=== PATIENT | male | born 1935 | race Caucasian/White ===

== ENCOUNTER 2016-05-01 04:35 | Inpatient (IN) | payer MEDICARE, BC ==
[~2016-05-01] VITALS: Ht 180.3 cm; Wt 85.0 kg
[2016-05-01] VITALS (10 sets, daily range): BP systolic 161–184; BP diastolic 84–99; PULSE 70–104; RESP 12–24; TEMP 96.9–97.9; O2SAT 90–97
[~2016-05-01 04:35] MED LIST: APIX5TAB PO; BETAM.05%T TOP; DILTCD240 PO; GABA300 PO; LOSA100T PO; METF850 PO; METO50TA PO; MVI PO; PRAV40 PO; TEMA15 PO
--- NOTE | 2016-05-01 05:08 | PD ---
HPI Chief Complaint: Respiratory Symptoms Time Seen by Provider: 04:59 Travel History International Travel<30 days: No Contact w/Intl Traveler<30days: No Traveled to known affect area: No History of Present Illness HPI 81-year-old male with history of A. fib on [facility], [facility], followed by sales order processor Dr. Harris, here for evaluation of shortness of breath, cough, and right-sided chest pain. Symptoms have been going on for last 2 days and have been worsening. Cough is occasionally productive of greenish sputum. No hemoptysis. Shortness of breath is at rest, worse with exertion. He is describing an ache over his right chest that is worse at night. No modifying factors. No orthopnea. No history of DVT or PE. He does have a history of pleural effusion which she reports was drained by cryptologic technician technical Dr. Cohen. 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) High Cholesterol: Yes Chemotherapy: No Chest Pain: Yes Congestive Heart Failure: No COPD: No Cerebrovascular Accident: No Diabetes: Yes (TYPE 2) Diminished Hearing: Yes Endocrine: No Gastrointestinal Disorders: No GERD: No Glaucoma: No Genitourinary: No Headaches: No Hepatitis: No Hiatal Hernia: No Hypertension: Yes Immune Disorder: No Kidney Stones: No Musculoskeletal: No Neurologic: No Psychiatric: No Reproductive: No Respiratory: No Integumentary: No Migraines: No Myocardial Infarction: Yes (2 SC 1992) Radiation Therapy: No Renal Failure: No Seizures: No Sickle Cell Disease: No Sleep Apnea: No Thyroid Disease: No Ulcer: No Past Surgical History Abdominal Surgery: Yes (HAD G TUBE REMOVED 2013) AICD: No Arteriovenous Shunt: No Cardiac Surgery: Yes Ear Surgery: No Endocrine Surgery: No Eye Surgery: Yes (CATARACT SURGERY BILATERAL) Genitourinary Surgery: No Gynecologic Surgery: No Insulin Pump: No Joint Replacement: No Oral Surgery: No Pacemaker: No Thoracic Surgery: No Other Surgery: Yes (TRACH REVERSED 2013) Social History Alcohol Use: Yes (daily to occasionally) Tobacco Use: No Substance Use: No Allergies-Medications (Allergen,Severity, Reaction): Coded Allergies: No Known Allergies (Verified , 05/01/16) Reported Meds & Prescriptions Reported Meds & Active Scripts Active Reported Betamethasone Dipropionate Topical 0.05% Cream 1 Applic TOPICAL DIRECTED Prilosec (Omeprazole) 20 Mg Cap 20 Mg PO DAILY Mobic (Meloxicam) 7.5 Mg Tab 7.5 Mg PO DAILY Pravastatin 40 Mg Tab 40 Mg PO DAILY Temazepam 15 Mg Cap 15 Mg PO HS PRN Gabapentin 300 Mg Cap 300 Mg PO HS Diltiazem CD 24 HR 180 Mg Caper 180 Mg PO BID Losartan (Losartan Potassium) 100 Mg Tab 100 Mg PO DAILY Metformin (Metformin HCl) 850 Mg Tab 850 Mg PO BIDPC With meals Metoprolol Tartrate 50 Mg Tab 50 Mg PO HS Eliquis (Apixaban) 5 Mg Tab 5 Mg PO BID Review of Systems Except as stated in HPI: all other systems reviewed are Neg Physical Exam Narrative GENERAL: Pleasant, well-developed, well-nourished, comfortable, no acute distress. SKIN: Warm and dry. Midline surgical scar that is well-healed over his thoracic and lumbar spine. HEAD: Atraumatic. Normocephalic. EYES: Pupils equal and round. No scleral icterus. No injection or drainage. ENT: Mucous membranes pink and moist. NECK: Trachea midline. No JVD. CARDIOVASCULAR: Regular rate and rhythm. No murmur appreciated. RESPIRATORY: No accessory muscle use. Mild bibasilar rales. No wheezes or rhonchi. Breath sounds equal bilaterally. GASTROINTESTINAL: Abdomen soft, non-tender, nondistended. MUSCULOSKELETAL: No obvious deformities. No clubbing. No cyanosis. Mild bilateral lower extremity edema from foot to knee. NEUROLOGICAL: Awake and alert. No obvious cranial nerve deficits. Motor grossly within normal limits. Normal speech. PSYCHIATRIC: Appropriate mood and affect; insight and judgment normal. Data Data Last Documented VS Vital Signs Date Time Temp Pulse Resp B/P Pulse Ox O2 Delivery O2 Flow Rate FiO2 05/01/16 05:42 100 16 98 Nasal Cannula 2 05/01/16 04:54 97.9 161/84 Orders Complete Blood Count With Diff (05/01/16 05:05) Comprehensive Metabolic Panel (05/01/16 05:05) B-Type Natriuretic Peptide (05/01/16 05:05) Act Partial Throm Time (Ptt) (05/01/16 05:05) Prothrombin Time / Inr (Pt) (05/01/16 05:05) Ckmb (Isoenzyme) Profile (05/01/16 05:05) Troponin I (05/01/16 05:05) Influenzae A/B Antigen (05/01/16 05:05) Iv Access Insert/Monitor (05/01/16 05:05) Electrocardiogram (05/01/16 05:05) Ecg Monitoring (05/01/16 05:05) Oximetry (05/01/16 05:05) Oxygen Administration (05/01/16 05:05) Chest, Single Ap (05/01/16 05:05) Sodium Chloride 0.9% Flush (Ns Flush) (05/01/16 05:15) Blood Culture (05/01/16 05:05) Lactic Acid (05/01/16 05:05) Urinalysis - C+S If Indicated (05/01/16 05:58) CKMB (05/01/16 05:30) CKMB% (05/01/16 05:30) Ceftriaxone Inj (Rocephin Inj) (05/01/16 06:45) Azithromycin Inj (Zithromax Inj) (05/01/16 06:45) Furosemide Inj (Lasix Inj) (05/01/16 06:45) Admit Order (Ed Use Only) (05/01/16 06:39) Labs Laboratory Tests Test 05/01/16 05/01/16 05:30 06:00 White Blood Count 8.8 TH/MM3 Red Blood Count 4.17 MIL/MM3 Hemoglobin 13.0 GM/DL Hematocrit 38.1 % Mean Corpuscular Volume 91.4 FL Mean Corpuscular Hemoglobin 31.1 PG Mean Corpuscular Hemoglobin 34.1 % Concent Red Cell Distribution Width 14.1 % Platelet Count 301 TH/MM3 Mean Platelet Volume 7.6 FL Neutrophils (%) (Auto) 81.3 % Lymphocytes (%) (Auto) 11.4 % Monocytes (%) (Auto) 6.3 % Eosinophils (%) (Auto) 0.6 % Basophils (%) (Auto) 0.4 % Neutrophils # (Auto) 7.2 TH/MM3 Lymphocytes # (Auto) 1.0 TH/MM3 Monocytes # (Auto) 0.6 TH/MM3 Eosinophils # (Auto) 0.1 TH/MM3 Basophils # (Auto) 0.0 TH/MM3 CBC Comment DIFF FINAL Differential Comment Prothrombin Time 11.6 SEC Prothromb Time International 1.0 RATIO Ratio Activated Partial 28.1 SEC Thromboplast Time Sodium Level 140 MEQ/L Potassium Level 4.1 MEQ/L Chloride Level 103 MEQ/L Carbon Dioxide Level 29.7 MEQ/L Anion Gap 7 MEQ/L Blood Urea Nitrogen 10 MG/DL Creatinine 0.91 MG/DL Estimat Glomerular Filtration 80 ML/MIN Rate Random Glucose 134 MG/DL Lactic Acid Level 1.9 mmol/L Calcium Level 8.7 MG/DL Total Bilirubin 0.7 MG/DL Aspartate Amino Transf 39 U/L (AST/SGOT) Alanine Aminotransferase 25 U/L (ALT/SGPT) Alkaline Phosphatase 70 U/L Total Creatine Kinase 124 U/L Creatine Kinase MB 1.8 NG/ML Troponin I LESS THAN 0.02 NG/ML B-Type Natriuretic Peptide 172 PG/ML Total Protein 7.9 GM/DL Albumin 3.6 GM/DL Urine Color YELLOW Urine Turbidity CLEAR Urine pH 7.0 Urine Specific [place] 1.013 Urine Protein TRACE mg/dL Urine Glucose (UA) NEG mg/dL Urine Ketones NEG mg/dL Urine Occult Blood NEG Urine Nitrite NEG Urine Bilirubin NEG Urine Urobilinogen LESS THAN 2.0 MG/DL Urine Leukocyte Esterase NEG Urine RBC 1 /hpf Urine WBC 1 /hpf Microscopic Urinalysis Comment CULT NOT INDICATED MDM Medical Decision Making Medical Screen Exam Complete: Yes Emergency Medical Condition: Yes Medical Record Reviewed: Yes Interpretation(s) EKG: A. fib, rate 74, left axis deviation, Q waves in inferior leads, no acute ischemic abnormality. Differential Diagnosis Pneumonia, influenza, pneumothorax, pleural effusion, PE, CHF/pulmonary edema, ACS Narrative Course Initial vital signs show heart rate 70, blood pressure 161/84, pulse ox 90% on room air, oral temp of 97.9F. CBC shows WBCs 8.8, hemoglobin 13, hematocrit 38.1, platelets 301, neutrophils 81.3%. CMP is essentially unremarkable. Cardiac enzymes are negative. UA is not suggestive of UTI. Chest x-ray: FINDINGS: Bilateral pleural effusions, left lower lung consolidation and patchy infiltrates in the right lower lung are similar in severity and appearance when compared to a chest x-ray in June of 2014. Mid and upper lungs are clear. The heart is moderately enlarged. The patient and the patient's were made aware of all findings. He reports having a cough that is intermittently productive of greenish sputum. Given this and above chest x-ray findings as well as hypoxia of 90% on room air, I will start him on antibiotics to cover for pneumonia. He will also be given Lasix. He will be admitted for further treatment and evaluation. Diagnosis Primary Impression: Pleural effusion Additional Impressions: Pneumonia Qualified Code: J18.1 - Pneumonia of right lower lobe due to infectious organism Chest pain Qualified Code: R07.9 - Chest pain, unspecified type Hypoxia Admitting Information Admitting Physician Requests: Admit Roger Pacheco MD May 01, 2016 05:08
[2016-05-01] MEDS ORDERED: SODIUM CHLORIDE 0.9% FLUSH 5 ML FLUSH IVF PRN (05:15)
[2016-05-01] MEDS ORDERED: MOBI7.5T PO (05:41)
[2016-05-01] MEDS ORDERED: PRAV40TA2 PO (05:41)
[2016-05-01] MEDS ORDERED: APIX5TAB PO (05:41)
[2016-05-01] MEDS ORDERED: GABA300C5 PO (05:41)
[2016-05-01] MEDS ORDERED: TEMA15CA PO (05:41)
[2016-05-01] MEDS ORDERED: PRIL20CA9 PO (05:41)
[2016-05-01] MEDS ORDERED: METO50TA PO (05:41)
[2016-05-01] MEDS ORDERED: DILT180C56 PO (05:41)
[2016-05-01] MEDS ORDERED: LOSA100T PO (05:41)
[2016-05-01] MEDS ORDERED: METF850T PO (05:41)
[2016-05-01] MEDS ORDERED: BETA0.052 TOPICAL (05:41)
[2016-05-01 05:58] LABS: APTT (PATIENT) 28.1 SEC (24.3-30.1); AUTOMATED NEUTROPHIL # 7.2 TH/MM3 (1.8-7.7); BASOPHIL % 0.4 % (0.0-2.0); EOSINOPHIL # 0.1 TH/MM3 (0-0.4); EOSINOPHIL % 0.6 % (0.0-4.0); HEMATOCRIT 38.1 % (39.0-51.0); HEMO FLAGS DIFF FINAL; LYMPH % 11.4 % (9.0-44.0); MEAN CELL VOLUME 91.4 FL (80.0-100.0); MEAN CORPUSCULAR HEMOGLOBIN 31.1 PG (27.0-34.0); MEAN CORPUSCULAR HGB CONC 34.1 % (32.0-36.0); MONO % 6.3 % (0.0-8.0); NEUT % 81.3 % (16.0-70.0); PLATELET COUNT 301 TH/MM3 (150-450); PROTHROMBIN TIME - PATIENT 11.6 SEC (9.8-11.6); RED BLOOD COUNT 4.17 MIL/MM3 (4.50-5.90); RED CELL DISTRIBUTION WIDTH 14.1 % (11.6-17.2); WHITE BLOOD COUNT 8.8 TH/MM3 (4.0-11.0)
[2016-05-01 06:00] LABS: ALT (GPT) 25 U/L (12-78); ANION GAP 7 MEQ/L (5-15); AST (GOT) 39 U/L (15-37); BICARBONATE 29.7 MEQ/L (21.0-32.0); BLOOD UREA NITROGEN 10 MG/DL (7-18); CHLORIDE 103 MEQ/L (98-107); GLOMERULAR FILTRATION RATE 80 ML/MIN (>89); POTASSIUM 4.1 MEQ/L (3.5-5.1); SODIUM (NA) 140 MEQ/L (136-145)
[2016-05-01 06:03] LABS: ALKALINE PHOSPHATASE 70 U/L (45-117); CREATINE KINASE 124 U/L (39-308); TOTAL BILIRUBIN ADULT 0.7 MG/DL (0.2-1.0)
[2016-05-01 06:15] LABS: CKMB 1.8 NG/ML (0.5-3.6)
[2016-05-01 06:16] LABS: BLOOD, URINE NEG (NEG); GLUCOSE,URINE NEG (NEG); KETONE, URINE NEG (NEG); NITRITE,URINE NEG (NEG); URINE COLOR YELLOW (YELLW/STRAW)
[2016-05-01 06:21] LABS: COMMENT (UR) CULT NOT INDICATED; CULTURE IF INDICATED CULT NOT INDICATED
--- NOTE | 2016-05-01 06:27 | RADRPT ---
EXAM DATE/TIME: 05/01/2016 05:08 [facility] COMPARISON: CHEST PA & LAT, May 28, 2013, 16:38. CHEST SINGLE AP, June 08, 2014, 23:55. INDICATIONS : Shortness of breath. MEDICAL HISTORY : Myocardial infarction. SURGICAL HISTORY : Right thoracentesis, thoracic and lumbar spine fusion. ENCOUNTER: Initial ACUITY: 1 day PAIN SCORE: 0/10 LOCATION: Bilateral chest FINDINGS: Bilateral pleural effusions, left lower lung consolidation and patchy infiltrates in the right lower lung are similar in severity and appearance when compared to a chest x-ray in June of 2014. Mid and upper lungs are clear. The heart is moderately enlarged. CONCLUSION: Lower lobe consolidation and pleural effusions. Willie Hoskins MD on May 01, 2016 at 6:24 Board Certified Radiologist. This report was verified electronically.
[2016-05-01] MEDS ORDERED: GLUCAGON 1 MG/ML VIAL OTHER PRN (06:45)
[2016-05-01] MEDS ORDERED: RESP: ALBUTEROL 2.5 MG/IPRATROPIUM 0.5 MG NEB (PRN) NEB (06:45)
[2016-05-01] MEDS ORDERED: SODIUM CHLORIDE 0.9% FLUSH 5 ML FLUSH FLUSH PRN (06:45)
[2016-05-01] MEDS ORDERED: ACETAMINOPHEN/HYDROcodone 325 MG/10 MG TAB PO PRN (06:45)
[2016-05-01] MEDS ORDERED: cefTRIAXone INJ 1,000 MG in SODIUM CHLORIDE 0.9% INJ 100 ML IV ONE (06:45)
[2016-05-01] MEDS ORDERED: ACETAMINOPHEN/HYDROcodone 325 MG/5 MG TAB PO PRN (06:45)
[2016-05-01] MEDS ORDERED: ONDANSETRON HCL 4 MG/2 ML VIAL IVP PRN (06:45)
[2016-05-01] MEDS ORDERED: ACETAMINOPHEN 325 MG TAB PO PRN (06:45)
[2016-05-01] MEDS ORDERED: AZITHROMYCIN INJ 500 MG in SODIUM CHLOR 0.9% 250 ML INJ 250 ML IV ONE (06:45)
[2016-05-01] MEDS ORDERED: DEXTROSE 50% IN WATER 50 ML VIAL(D50) IV PUSH PRN (06:45)
[2016-05-01] MEDS ORDERED: FUROSEMIDE 40 MG/4 ML VIAL IV PUSH ONE (06:45)
[2016-05-01] MEDS ORDERED: BISACODYL 10 MG SUPP PR PRN (06:45)
[2016-05-01] MEDS ORDERED: TEMAZEPAM 15 MG CAP PO PRN (06:45)
[2016-05-01] MEDS: INSULIN ASPART SUPPLEMENTAL SCALE SQ SCH ×4 (07:00→21:00)
[2016-05-01] MEDS: APIXABAN 5 MG TABLET PO SCH ×2 (09:29→22:25)
[2016-05-01] MEDS: PRAVASTATIN SOD 40 MG TAB PO SCH (09:29)
[2016-05-01] MEDS: guaiFENesin E.R. 600 MG TAB PO SCH ×2 (09:29→22:25)
[2016-05-01] MEDS: PANTOPRAZOLE SOD 20 MG DELAYED RELEASE TAB PO SCH (09:29)
[2016-05-01] MEDS: DILTIAZEM-CD 180 MG CAP ER PO SCH ×2 (09:29→22:20)
[2016-05-01] MEDS: LOSARTAN 50 MG TAB PO SCH (09:30)
[2016-05-01] MEDS: SODIUM CHLORIDE 0.9% FLUSH 5 ML FLUSH FLUSH SCH ×2 (09:30→22:25)
[2016-05-01] MEDS ORDERED: LORazepam 2 MG/ML VIAL IV PUSH PRN ×4 (11:45)
[2016-05-01] MEDS ORDERED: FLUMAZENIL 0.5 MG/5 ML VIAL IV PUSH PRN (11:45)
[2016-05-01] MEDS ORDERED: LORazepam 1 MG TAB PO PRN (11:45)
[2016-05-01] MEDS ORDERED: LORazepam 2 MG TAB PO PRN (11:45)
--- NOTE | 2016-05-01 12:07 | HHI.HP ---
[facility] Primary [facility] Physician Abhay Woods MD Admission Diagnosis bilateral pleural effusions, pneumonia, hypoxia, chest pain Diagnoses: Chief Complaint: Short of breath with cough Travel History International Travel<30 Days: No Contact w/Intl Traveler <30 Da: No Traveled to Known Affected Are: No History of Present Illness 81 years old male with history of A. fib, hypertension, hyper lipidemia, diabetes mellitus, coronary artery disease,H/O pleural effusion status post thoracentesis about a year ago by pocket builder, presented with a complaint of 3 -4 days worsening short of breath with cough and greenish phlegm, no fever or chills, no hemoptysis, no abdominal pain diarrhea or constipation, orthopnea or PND. Patient denied recent flulike syndrome. He thought if the pleural effusion coming back. Chest x-ray showed bilateral infiltrate with pleural effusion, he does have edema in his legs but he is not on diuretic, he think he had a echocardiogram about a year or more ago at Dr. Harris office. He denied noncompliance with diet or consumption of salty food In ED patient was found to have elevated BNP of 173, elevated troponin, but no significant chest pain. Review of Systems Other All 10 systems reviewed and was positive for what is mentioned in history of present illness otherwise negative Past Family Social History Past Medical History A. fib Coronary artery disease [place] 2 in 1992 status post heart cath 2 Hyperlipidemia Diabetes mellitus type 2 Hypertension Past Surgical History G-tube removed 2013 Cataract surgery bilaterally Trach reversed 2013 Allergies: Coded Allergies: No Known Allergies (Verified , 05/01/16) Family History No significant medical disease runs in the family as per the patient Social History Drinks daily alcohol 1 drink of RuM an diet Coke daily No tobacco or illicit drug abuse Physical Exam Vital Signs Vital Signs Date Time Temp Pulse Resp B/P Pulse Ox O2 Delivery O2 Flow Rate FiO2 05/01/16 09:00 104 24 169/99 97 Nasal Cannula 2 05/01/16 07:00 90 22 166/87 95 Nasal Cannula 2 05/01/16 05:42 100 16 98 Nasal Cannula 2 05/01/16 05:42 96 Nasal Cannula 2 05/01/16 05:30 101 16 92 Room Air 05/01/16 04:54 97.9 70 20 161/84 90 Physical Exam - - - GENERAL: This is a well-nourished, well-developed patient, in no apparent distress. SKIN: No rashes, warm and dry HEAD: Atraumatic. Normocephalic. EYES: Pupils equal round and reactive. Extraocular motions intact. No scleral icterus. ENT: Nose without bleeding, or drainage, Airway patent. NECK: Trachea midline. Supple CARDIOVASCULAR: Regular rate and rhythm without murmurs, gallops, or rubs. RESPIRATORY: Diminished breath sounds bibasilar with some crackles GASTROINTESTINAL: Abdomen soft, non-tender, nondistended. Positive bowel sounds MUSCULOSKELETAL: Extremities without clubbing, cyanosis, +1 edema. Pedal pulses appreciated NEUROLOGICAL: Awake and alert. Moves all extremity. Normal speech.no focal neurological deficit Laboratory Laboratory Tests Test 05/01/16 05/01/16 05:30 06:00 White Blood Count 8.8 Red Blood Count 4.17 Hemoglobin 13.0 Hematocrit 38.1 Mean Corpuscular Volume 91.4 Mean Corpuscular Hemoglobin 31.1 Mean Corpuscular Hemoglobin 34.1 Concent Red Cell Distribution Width 14.1 Platelet Count 301 Mean Platelet Volume 7.6 Neutrophils (%) (Auto) 81.3 Lymphocytes (%) (Auto) 11.4 Monocytes (%) (Auto) 6.3 Eosinophils (%) (Auto) 0.6 Basophils (%) (Auto) 0.4 Neutrophils # (Auto) 7.2 Lymphocytes # (Auto) 1.0 Monocytes # (Auto) 0.6 Eosinophils # (Auto) 0.1 Basophils # (Auto) 0.0 CBC Comment DIFF FINAL Differential Comment Prothrombin Time 11.6 Prothromb Time International 1.0 Ratio Activated Partial 28.1 Thromboplast Time Sodium Level 140 Potassium Level 4.1 Chloride Level 103 Carbon Dioxide Level 29.7 Anion Gap 7 Blood Urea Nitrogen 10 Creatinine 0.91 Estimat Glomerular Filtration 80 Rate Random Glucose 134 Lactic Acid Level 1.9 Calcium Level 8.7 Total Bilirubin 0.7 Aspartate Amino Transf 39 (AST/SGOT) Alanine Aminotransferase 25 (ALT/SGPT) Alkaline Phosphatase 70 Total Creatine Kinase 124 Creatine Kinase MB 1.8 Troponin I LESS THAN 0.02 B-Type Natriuretic Peptide 172 Total Protein 7.9 Albumin 3.6 Urine Color YELLOW Urine Turbidity CLEAR Urine pH 7.0 Urine Specific [place] 1.013 Urine Protein TRACE Urine Glucose (UA) NEG Urine Ketones NEG Urine Occult Blood NEG Urine Nitrite NEG Urine Bilirubin NEG Urine Urobilinogen LESS THAN 2.0 Urine Leukocyte Esterase NEG Urine RBC 1 Urine WBC 1 Microscopic Urinalysis Comment CULT NOT INDICATED Date/Time Procedure Status Source Growth 05/01/16 05:55 Influenza Types A,B Antigen (TIM) - Final Complete Nasal Washing NEGATIVE FOR FLU A AND B ANTIGEN.... 05/01/16 05:30 Aerobic Blood Culture Received Blood Peripheral Pending 05/01/16 05:30 Anaerobic Blood Culture Received Blood Peripheral Pending Result Diagram: 05/01/16 0530 05/01/16 0530 Imaging Last Impressions Chest X-Ray 05/01/16 0505 Signed Impressions: Service Date/Time: Sunday, May 01, 2016 05:08 - CONCLUSION: Lower lobe consolidation and pleural effusions. Willie Hoskins MD Assessment and Plan Assessment and Plan 81 years old male admitted with shortness of breath with coughing and hypoxia Bilateral pneumonia with pleural effusion History of previous pleural effusion and thoracentesis by pocket builder dr.D' portillo unknown (transudative vs exudative ) Atrial fibrillation with rate controlled on diltiazem and beta dayana, elliquis Increase troponin mostly due to pneumonia Alcohol abuse, daily alcohol consumption Hypertension Hyperlipidemia History of coronary artery disease status post [place] 93 DVT prophylaxis on elliquis Plan: Admit to inpatient Oxygen, DuoNeb, Rocephin Zithromax Morphine iv for pain and to improve respiration Check sputum culture, and Legionella pneumococcal urine antigen consult pulmonary for possible need of bronchoscopy to r/o underlying malignancy Check 2-D echo Started on Lasix 40 mg twice a day Strict I&O Monitor BMP and BNP, BMP today 172 Repeat chest x-ray in 1 or 2 days If pleural effusion doesn't improve we may need to go for thoracentesis Accu-Chek and insulin sliding scale CIWA protocol Resume home meds rec including diltiazem, metoprolol, and losartan for hypertension statinsuzanne Discussed Condition With Patient Physician Certification 2 Midnight Certification Type: Admission for Inpatient Services Order for Inpatient Services The services are ordered in accordance with Medicare regulations or non- Medicare payer requirements, as applicable. In the case of services not specified as inpatient-only, they are appropriately provided as inpatient services in accordance with the 2-midnight benchmark. Estimated LOS (days): 2 days is the estimated time the patient will need to remain in the hospital, assuming treatment plan goals are met and no additional complications. Post-Hospital Plan: Not yet determined Stephanie Bahena MD May 01, 2016 12:07
[2016-05-01] MEDS ORDERED: MORPHINE SULFATE 4 MG/ML INJ IV PUSH PRN ×2 (12:15)
[2016-05-01] MEDS ORDERED: ENALAPRILAT 1.25 MG/ML VIAL IV PUSH PRN (12:15)
[2016-05-01] MEDS: cloNIDine HCL 0.1 MG TAB PO PRN (15:21)
[2016-05-01] MEDS: FUROSEMIDE 40 MG/4 ML VIAL IV PUSH SCH (17:55)
[2016-05-01] MEDS: METOPROLOL TARTRATE 50 MG TAB PO SCH (22:25)
[2016-05-01] MEDS: GABAPENTIN 300 MG CAP PO SCH (22:26)
--- NOTE | 2016-05-01 23:24 | EKG ---
Date Performed: 05/01/2016 Time Performed: 05:11:54 PTAGE: 81 years EKG: ATRIAL FIBRILLATION POSSIBLE INFERIOR MYOCARDIAL INFARCTION ABNORMAL RHYTHM ECG PREVIOUS TRACING : 06/08/2014 23.36 Compared to the previous tracing, rate has decreased DOCTOR: Manuel Castellano Interpretating Date/Time 05/01/2016 23:23:48
[2016-05-02] VITALS (8 sets, daily range): BP systolic 132–164; BP diastolic 67–96; PULSE 70–97; RESP 18–20; TEMP 97.6–98.8; O2SAT 93–98
[2016-05-02] MEDS: cloNIDine HCL 0.1 MG TAB PO PRN (00:03)
[2016-05-02 04:35] LABS: AUTOMATED NEUTROPHIL # 6.7 TH/MM3 (1.8-7.7); BASOPHIL % 0.4 % (0.0-2.0); EOSINOPHIL # 0.1 TH/MM3 (0-0.4); EOSINOPHIL % 1.3 % (0.0-4.0); HEMATOCRIT 35.2 % (39.0-51.0); HEMO FLAGS DIFF FINAL; LYMPH % 13.4 % (9.0-44.0); LYMPHOCYTE # 1.2 TH/MM3 (1.0-4.8); MEAN CELL VOLUME 90.6 FL (80.0-100.0); MEAN CORPUSCULAR HEMOGLOBIN 31.3 PG (27.0-34.0); MEAN CORPUSCULAR HGB CONC 34.5 % (32.0-36.0); MONO % 9.4 % (0.0-8.0); NEUT % 75.5 % (16.0-70.0); PLATELET COUNT 273 TH/MM3 (150-450); RED BLOOD COUNT 3.89 MIL/MM3 (4.50-5.90); RED CELL DISTRIBUTION WIDTH 13.7 % (11.6-17.2); WHITE BLOOD COUNT 8.8 TH/MM3 (4.0-11.0)
[2016-05-02 05:19] LABS: ALKALINE PHOSPHATASE 67 U/L (45-117); ALT (GPT) 18 U/L (12-78); ANION GAP 6 MEQ/L (5-15); AST (GOT) 12 U/L (15-37); BICARBONATE 34.1 MEQ/L (21.0-32.0); BLOOD UREA NITROGEN 14 MG/DL (7-18); CHLORIDE 102 MEQ/L (98-107); GLOMERULAR FILTRATION RATE 69 ML/MIN (>89); POTASSIUM 3.6 MEQ/L (3.5-5.1); SODIUM (NA) 142 MEQ/L (136-145); TOTAL BILIRUBIN ADULT 0.7 MG/DL (0.2-1.0)
[2016-05-02] MEDS: AZITHROMYCIN INJ 500 MG in SODIUM CHLOR 0.9% 250 ML INJ 250 ML IV SCH (05:53)
[2016-05-02] MEDS: INSULIN ASPART SUPPLEMENTAL SCALE SQ SCH ×4 (06:26→21:00)
[2016-05-02] MEDS: cefTRIAXone INJ 1,000 MG in SODIUM CHLORIDE 0.9% INJ 100 ML IV SCH (08:00)
[2016-05-02] MEDS: guaiFENesin E.R. 600 MG TAB PO SCH ×2 (08:24→22:05)
[2016-05-02] MEDS: PRAVASTATIN SOD 40 MG TAB PO SCH (08:25)
[2016-05-02] MEDS: LOSARTAN 50 MG TAB PO SCH (08:25)
[2016-05-02] MEDS: THIAMINE HCL 100 MG TAB PO SCH (08:25)
[2016-05-02] MEDS: SODIUM CHLORIDE 0.9% FLUSH 5 ML FLUSH FLUSH SCH ×2 (08:26→22:06)
[2016-05-02] MEDS: FUROSEMIDE 40 MG/4 ML VIAL IV PUSH SCH ×2 (08:26→17:51)
[2016-05-02] MEDS: DILTIAZEM-CD 180 MG CAP ER PO SCH ×2 (08:27→22:06)
[2016-05-02] MEDS: PANTOPRAZOLE SOD 20 MG DELAYED RELEASE TAB PO SCH (08:27)
[2016-05-02] MEDS: APIXABAN 5 MG TABLET PO SCH ×2 (08:27→22:05)
[2016-05-02] MEDS: FOLIC ACID 1 MG TAB PO SCH (08:27)
[2016-05-02] MEDS: RESP: ALBUTEROL 2.5 MG/IPRATROPIUM 0.5 MG NEB (SCH) NEB ×2 (14:01→20:43)
--- NOTE | 2016-05-02 16:26 | RADRPT ---
EXAM DATE/TIME: 05/02/2016 15:37 [facility] COMPARISON: No previous studies available for comparison. EXTERNAL COMPARISON : [facility], XR CHEST PA & LAT, January 25, 2016 INDICATIONS : Right pleural effusion. MEDICAL HISTORY : Myocardial infarction. Hypercholesterolemia. Arthritis. Heart blood clot. Afib. HTN. Type II Diabetes. SURGICAL HISTORY : Bilateral cataract surgery. Cardiac cath. G tube removed. Orthopedic surg nora, back and fractured neck. Trach reversed. ENCOUNTER: Subsequent ACUITY: 4-6 days PAIN SCORE: 0/10 LOCATION: Right chest MEASUREMENTS: SKIN TO PARIETAL PLEURA: 2.8 cm SKIN TO MAX SAFE DEPTH: 4.6 cm ESTIMATED FLUID VOLUME: 621 cc FLUID COMPOSITION: simple FINDINGS: Pleural effusion as above. A tanner was placed on the skin surface superficial to the pleural fluid col lection. CONCLUSION: Right pleural effusion is noted above Taras Ding MD on May 02, 2016 at 16:24 Board Certified Radiologist. This report was verified electronically.
--- NOTE | 2016-05-02 16:29 | RADRPT ---
EXAM DATE/TIME: 05/02/2016 15:42 [facility] COMPARISON: No previous studies available for comparison. EXTERNAL COMPARISON : [facility], XR CHEST PA & LAT, January 25, 2016 INDICATIONS : Left pleural effusion. MEDICAL HISTORY : Myocardial infarction. Hypercholesterolemia. Arthritis. Heart blood clot. Afib. HTN. Type II Diabetes . SURGICAL HISTORY : Bilateral cataract surgery. Cardiac cath. G tube removed. Orthopedic surgery, back and fractured neck . Trach reversed. ENCOUNTER: Subsequent ACUITY: 4-6 days PAIN SCORE: 0/10 LOCATION: Left chest MEASUREMENTS: SKIN TO PARIETAL PLEURA: 3.4 cm SKIN TO MAX SAFE DEPTH: 5.8 cm ESTIMATED FLUID VOLUME: 425 cc FLUID COMPOSITION: simple FINDINGS: Pleural effusion as above. A tanner was placed on the skin surface superficial to the pleural fluid col lection. CONCLUSION: Left pleural effusion as noted above. Taras Ding MD on May 02, 2016 at 16:27 Board Certified Radiologist. This report was verified electronically.
--- NOTE | 2016-05-02 16:49 | HHI.PR ---
Subjective Remarks Resting in bed comfortably, breathing fairly well on nasal cannula, does have coughing no fever or chills Objective Vitals Vital Signs Date Time Temp Pulse Resp B/P Pulse Ox O2 Delivery O2 Flow Rate FiO2 05/02/16 15:39 76 20 136/80 93 05/02/16 14:13 95 Nasal Cannula 2.00 05/02/16 11:14 97.6 75 18 139/76 95 05/02/16 08:01 73 05/02/16 03:36 97.9 70 20 147/69 93 05/01/16 23:54 97.6 80 20 165/93 93 05/01/16 20:54 97.7 87 12 172/95 93 05/01/16 20:00 93 I/O 05/01/16 05/01/16 05/01/16 05/02/16 05/02/16 05/02/16 07:00 15:00 23:00 07:00 15:00 23:00 Intake Total 240 ml 350 ml Output Total 1200 ml 700 ml 500 ml Balance -1200 ml -460 ml -150 ml Intake Oral 240 ml IV Total 350 ml Output Urine Total 1200 ml 700 ml 500 ml # Voids 5 2 Result Diagram: 05/02/16 0415 05/02/165 Objective Remarks - - - GENERAL: This is a well-nourished, well-developed patient, in no apparent distress. SKIN: No rashes, warm and dry HEAD: Atraumatic. Normocephalic. EYES: Pupils equal round and reactive. Extraocular motions intact. No scleral icterus. ENT: Nose without bleeding, or drainage, Airway patent. NECK: Trachea midline. Supple CARDIOVASCULAR: Regular rate and rhythm without murmurs, gallops, or rubs. RESPIRATORY: Diminished breath sounds bibasilar with some crackles GASTROINTESTINAL: Abdomen soft, non-tender, nondistended. Positive bowel sounds MUSCULOSKELETAL: Extremities without clubbing, cyanosis, +1 edema. Pedal pulses appreciated NEUROLOGICAL: Awake and alert. Moves all extremity. Normal speech.no focal neurological deficit A/P Assessment and Plan 81 years old male admitted with shortness of breath with coughing and hypoxia Bilateral pneumonia with pleural effusion +1 tube Staphylococcus epidermidis in the blood culture most likely contamination History of previous pleural effusion and thoracentesis by analog device designer dr.D' portillo unknown (transudative vs exudative ) Atrial fibrillation with rate controlled on diltiazem and beta dayana, elliquis Increase troponin mostly due to pneumonia Alcohol abuse, daily alcohol consumption Hypertension Hyperlipidemia History of coronary artery disease status post [place] 93 DVT prophylaxis on elliquis Plan: Repeat blood culture Monitor BMP, BNP in a.m., chest x-ray in a.m. Oxygen, DuoNeb, Rocephin Zithromax Morphine iv for pain and to improve respiration sputum culture when available, and Legionella pneumococcal urine antigen consult pulmonary for possible need of bronchoscopy to r/o underlying malignancy Pending 2-D echo Started on Lasix 40 mg twice a day Strict I&O Monitor BMP and BNP, BMP today 172 Repeat chest x-ray in 1 or 2 days If pleural effusion doesn't improve we may need to go for thoracentesis Accu-Chek and insulin sliding scale CIWA protocol Resume home meds rec including diltiazem, metoprolol, and losartan for hypertension statin, Stephanie Waddell MD May 02, 2016 16:49
[2016-05-02] MEDS: GABAPENTIN 300 MG CAP PO SCH (22:06)
[2016-05-02] MEDS: METOPROLOL TARTRATE 50 MG TAB PO SCH (22:06)
[2016-05-03] MEDS: AZITHROMYCIN INJ 500 MG in SODIUM CHLOR 0.9% 250 ML INJ 250 ML IV SCH (05:45)
[2016-05-03] MEDS: INSULIN ASPART SUPPLEMENTAL SCALE SQ SCH ×4 (05:51→20:59)
[2016-05-03 06:54] LABS: BICARBONATE 35.8 MEQ/L (21.0-32.0); POTASSIUM 3.7 MEQ/L (3.5-5.1)
[2016-05-03 07:14] VITALS: BP 130/68; PULSE 87; RESP 18; TEMP 98; O2SAT 97
[2016-05-03 08:00] VITALS: BP 176/86; PULSE 73; RESP 18; TEMP 97.5; O2SAT 93
--- NOTE | 2016-05-03 08:32 | RADRPT ---
EXAM DATE/TIME: 05/03/2016 08:07 [facility] COMPARISON: CHEST PA & LAT, May 28, 2013, 16:38. INDICATIONS : Pleural effusion. MEDICAL HISTORY : Myocardial infarction. Hypercholesterolemia. Arthritis. Heart blood clot. Afib. HTN. SURGICAL HISTORY : Bilateral cataract surgery. Cardiac cath. G tube removed. Orthopedic surgery,back and fractured neck. Trach reversed. ENCOUNTER: Subsequent ACUITY: 3 days PAIN SCORE: 0/10 LOCATION: chest FINDINGS: The cardiac silhouette is enlarged in transverse diameter. There is bilateral lower lobe atelectasis versus pneumonia. Moderate size bilateral pleural effusions are identified. CONCLUSION: 1. Bibasilar atelectasis and bilateral effusions left greater than right. Abhay Crook MD on May 03, 2016 at 8:29 Board Certified Radiologist. This report was verified electronically.
[2016-05-03] MEDS: LOSARTAN 50 MG TAB PO SCH (08:33)
[2016-05-03] MEDS: guaiFENesin E.R. 600 MG TAB PO SCH ×2 (08:33→21:00)
[2016-05-03] MEDS: THIAMINE HCL 100 MG TAB PO SCH (08:33)
[2016-05-03] MEDS: PRAVASTATIN SOD 40 MG TAB PO SCH (08:33)
[2016-05-03] MEDS: FUROSEMIDE 40 MG/4 ML VIAL IV PUSH SCH ×2 (08:34→18:24)
[2016-05-03] MEDS: FOLIC ACID 1 MG TAB PO SCH (08:34)
[2016-05-03] MEDS: PANTOPRAZOLE SOD 20 MG DELAYED RELEASE TAB PO SCH (08:34)
[2016-05-03] MEDS: cefTRIAXone INJ 1,000 MG in SODIUM CHLORIDE 0.9% INJ 100 ML IV SCH (08:34)
[2016-05-03] MEDS: DILTIAZEM-CD 180 MG CAP ER PO SCH ×2 (08:35→21:00)
[2016-05-03] MEDS: APIXABAN 5 MG TABLET PO SCH ×2 (08:36→21:00)
[2016-05-03] MEDS: SODIUM CHLORIDE 0.9% FLUSH 5 ML FLUSH FLUSH SCH ×2 (09:00→20:59)
[2016-05-03] MEDS: RESP: ALBUTEROL 2.5 MG/IPRATROPIUM 0.5 MG NEB (SCH) NEB ×3 (10:05→19:27)
--- NOTE | 2016-05-03 10:38 | MB ---
cc: ELENITA BAHENA MD, JOHN DATE OF CONSULTATION: 05/02/2016 REASON FOR CONSULTATION Pleural effusions and respiratory insufficiency. HISTORY OF PRESENT ILLNESS This is an 81-year-old white male with a past history of hypertension, atrial fibrillation and diabetes, who was admitted with shortness of breath and orthopnea. The patient also had a cough and was bringing up greenish-yellow mucus. He was orthopneic and had some leg swelling as well and thus was seen in the emergency room. Chest x-ray was done which showed evidence of bilateral lower lobe infiltrates with small effusions. The patient has not been on and diuretic for over a year. The last time he had a chest x-ray there was only evidence of a small effusion. In the past he has had a thoracentesis done for a larger effusion on the left side. He has had no night sweats, fevers, chills or hemoptysis. PAST MEDICAL HISTORY 1. Hypertension. 2. Hyperlipidemia. 3. Diabetes mellitus. 4. Coronary artery disease. 5. Cardiomyopathy. 6. Thoracentesis for recurrent effusion. 7. He has been treated for pneumonia. 8. Atrial fibrillation. 9. History of myocardial infarction. 10. Cataract surgery. 11. History of tracheostomy for respiratory failure. 12. History of PEG tube. ALLERGIES No drug allergies. HABITS The patient does not smoke. Alcohol use is moderate. FAMILY HISTORY Noncontributory. REVIEW OF SYSTEMS The patient has had some weight gain. He has leg swelling. Denies any calf muscle pain. He has some joint pains of his extremities. Denies any headaches or blackout spells. He has a good appetite. No urinary symptoms. No depression or anxiety. PHYSICAL EXAMINATION GENERAL: This is an averagely built elderly man alert and oriented. Mild pallor, no cyanosis or clubbing. He has mild peripheral edema. VITAL SIGNS: Blood pressure 158/80, pulse 100, respirations 18, temperature 98.5. HEENT: Head normocephalic. Pupils are reactive. Tongue moist. Throat is injected. Nasal mucosa edematous. NECK: Supple. No bruits. No thyroid enlargement. No lymphadenopathy. CHEST: Distant breath sounds with wheezes throughout both lung [place]. Prolonged expirations. HEART: Heart sounds irregular, S1 and S2. No murmur. ABDOMEN: Soft, nontender. No organomegaly. Bowel sounds are active. EXTREMITIES: Mild peripheral edema with diminished pulses. NEUROLOGIC: Reflexes 1+ with no gross motor deficits. Cranial nerves grossly intact. RECTAL: Exam is deferred. SKIN: No lesions noted. IMPRESSION 1. Bilateral basilar effusions with atelectasis. 2. History of atrial fibrillation and CHF. 3. Hypertension. 4. Hyperlipidemia. 5. Probable basilar pneumonia. 6. COPD. PLAN The patient has been already on antibiotic coverage which we will continue. O2 at 2 liters p.r.n. will be used. Ultrasound examination of the chest will be done to look for effusion and if significant effusion is present a thoracentesis will be planned. The patient will also receive nebulized DuoNeb solution q.i.d. and diuretic therapy as ordered. A repeat chest x-ray and electrolytes will be done as well. Thank you Dr. Bahena for this consultation. MD ELIZABETH Sotomayor/LEAH /11:03 PM /10:13 AM
[2016-05-03 12:24] VITALS: BP 161/79; PULSE 91; RESP 18; TEMP 96.7; O2SAT 95
--- NOTE | 2016-05-03 13:03 | HHI.PR ---
Subjective Remarks Has some SOB . Good output . Ultrasound shows a Moderate Right effusion and need to hold Eliquis for 2 days. Will tap chest in am. Objective Vital Signs Date Time Temp Pulse Resp B/P Pulse Ox O2 Delivery O2 Flow Rate FiO2 05/03/16 12:24 96.7 91 18 161/79 95 05/03/16 08:00 97.5 73 18 176/86 93 05/03/16 07:14 98.0 87 18 130/68 97 05/02/16 23:16 98.8 97 18 164/96 98 05/02/16 20:48 98.0 87 18 132/67 98 05/02/16 20:43 97 Nasal Cannula 2.00 05/02/16 15:39 76 20 136/80 93 05/02/16 14:13 95 Nasal Cannula 2.00 I/O 05/02/16 05/02/16 05/02/16 05/03/16 05/03/16 05/03/16 07:00 15:00 23:00 07:00 15:00 23:00 Intake Total 240 ml 350 ml Output Total 700 ml 500 ml 350 ml Balance -460 ml -150 ml -350 ml Intake Oral 240 ml IV Total 350 ml Output Urine Total 700 ml 500 ml 350 ml # Voids 2 Result Diagram: 05/02/16 0415 05/03/16 0609 Objective Remarks GENERAL: This is an averagely built elderly man alert and oriented. Mild pallor, no cyanosis or clubbing. He has mild peripheral edema. HEENT: Head normocephalic. Pupils are reactive. Tongue moist. Throat is injected. Nasal mucosa edematous. NECK: Supple. No bruits. No thyroid enlargement. No lymphadenopathy. CHEST: Distant breath sounds with wheezes throughout both lung [place]. Prolonged expirations.Crackles at bases. HEART: Heart sounds irregular, S1 and S2. No murmur. ABDOMEN: Soft, nontender. No organomegaly. Bowel sounds are active. EXTREMITIES: Mild peripheral edema with diminished pulses. NEUROLOGIC: Reflexes 1+ with no gross motor deficits. Cranial nerves grossly intact. RECTAL: Exam is deferred. SKIN: No lesions noted. Assessment and Plan Assessment and Plan IMPRESSION 1. Bilateral basilar effusions with atelectasis. 2. History of atrial fibrillation and CHF. 3. Hypertension. 4. Hyperlipidemia. 5. Probable basilar pneumonia. 6. COPD. Plan : 1. Hold Eliquis . 2.Thoracentesis in am. 3. Coags in am. 4. O2 at 2 L. 5. Cont Lasix bid. 6. CBC,BMP, PFT. Chris Cohen MD May 03, 2016 13:03
[2016-05-03 14:32] LABS: HEMATOCRIT 40.2 % (39.0-51.0); MEAN CELL VOLUME 92.6 FL (80.0-100.0); MEAN CORPUSCULAR HEMOGLOBIN 31.4 PG (27.0-34.0); MEAN CORPUSCULAR HGB CONC 33.9 % (32.0-36.0); PLATELET COUNT 322 TH/MM3 (150-450); RED BLOOD COUNT 4.35 MIL/MM3 (4.50-5.90); RED CELL DISTRIBUTION WIDTH 13.9 % (11.6-17.2); REVIEW FLAG FINAL; WHITE BLOOD COUNT 8.8 TH/MM3 (4.0-11.0)
[2016-05-03 14:48] LABS: PROTHROMBIN TIME - PATIENT 11.6 SEC (9.8-11.6)
--- NOTE | 2016-05-03 15:27 | EC ---
Study Study Date:05/03/2016 STUDY CONCLUSIONS SUMMARY - Left ventricle: The cavity size was normal. Wall thickness was normal. Systolic function was normal. The estimated ejection fraction was in the range of 50% to 55%. Wall motion was normal; there were no regional wall motion abnormalities. - Tricuspid valve: Mild regurgitation. - Pulmonary arteries: PA peak pressure: 42mm Hg (S). - Pericardium, extracardiac: Small posterior pericardial effusion. If LV function is below 40, please consider prescribing an ACEI or ARB or document rationale for non-use. PROCEDURE DATA STUDY STATUS: Elective. Procedure: Transthoracic echocardiography. Image quality was good. Scanning was performed from the parasternal, apical, and subcostal acoustic windows. Study completion: The patient tolerated the procedure well. Transthoracic echocardiography. M-mode, complete 2D, complete spectral Doppler, and color Doppler. Patient status: Inpatient. CARDIAC ANATOMY LEFT VENTRICLE: The cavity size was normal. Wall thickness was normal. Systolic function was normal. The estimated ejection fraction was in the range of 50% to 55%. Wall motion was normal; there were no regional wall motion abnormalities. AORTIC VALVE: Trileaflet; normal thickness leaflets. Doppler: Transvalvular velocity was within the normal range. There was no stenosis. No regurgitation. AORTA: Aortic root: The aortic root was normal in size. MITRAL VALVE: Structurally normal valve. Doppler: Transvalvular velocity was within the normal range. There was no evidence for stenosis. Trace regurgitation. Mean gradient: 2mm Hg (D). Peak gradient: 9mm Hg (D). LEFT ATRIUM: The atrium was normal in size. RIGHT VENTRICLE: The cavity size was normal. Wall thickness was normal. PULMONIC VALVE: Doppler: Transvalvular velocity was within the normal range. There was no evidence for stenosis. No regurgitation. TRICUSPID VALVE: Structurally normal valve. Doppler: Transvalvular velocity was within the normal range. Mild regurgitation. PULMONARY ARTERY: The main pulmonary artery was normal-sized. Systolic pressure was within the normal range. RIGHT ATRIUM: The atrium was normal in size. PERICARDIUM: Small posterior pericardial effusion. SYSTEMIC VEINS: Inferior vena cava: The vessel was normal in size. BASIC MEASUREMENTS ADULT Normal Left ventricle LV internal dimension, ED, chordal level, 51.9 mm 43-52 PLAX LV posterior wall thickness, ED 7.61 mm IVS/LVPW ratio, ED *1.45 <1.3 Ventricular septum Septal thickness, ED 11 mm Aortic valve Leaflet separation 22 mm 15-26 Left atrium Anterior-posterior dimension 43 mm Right ventricle RV internal dimension, ED, PLAX 20.9 mm 19-38 BASIC MEASUREMENTS ADULT Normal Aortic valve Leaflet separation 22 mm 15-26 Aorta Root diameter, ED 34 mm 20-37 DOPPLER MEASUREMENTS ADULT Normal Main pulmonary artery Pressure, S *42 mm Hg =30 Aortic valve VTI, S 34.1 cm Mitral valve Peak E-wave velocity 125 cm/s Peak A-wave velocity 30.2 cm/s Mean velocity, D 65.7 cm/s Mean gradient, D 2 mm Hg Peak gradient, D 9 mm Hg Peak E/A ratio 4.1 Tricuspid valve Regurgitant peak velocity 305 cm/s Peak RV-RA gradient, S 37 mm Hg Maximal regurgitant velocity 305 cm/s Systemic veins Estimated CVP 5 mm Hg Right ventricle RV pressure, S *42 mm Hg <30 LEGEND: Mean values are shown as u=mean value. Asterisk (*) mendoza values outside specified normal range. Prepared and signed by Marely Love [id number]
[2016-05-03 16:00] VITALS: BP 135/76; PULSE 88; RESP 18; TEMP 95.7; O2SAT 94
--- NOTE | 2016-05-03 16:00 | HHI.PR ---
Subjective Remarks Patient stated he feels little better, breathing better he is off nasal cannula He told me Dr. Ahumada decided on another thoracentesis Patient is afebrile Objective Vitals Vital Signs Date Time Temp Pulse Resp B/P Pulse Ox O2 Delivery O2 Flow Rate FiO2 05/03/16 12:24 96.7 91 18 161/79 95 05/03/16 08:00 97.5 73 18 176/86 93 05/03/16 07:14 98.0 87 18 130/68 97 05/02/16 23:16 98.8 97 18 164/96 98 05/02/16 20:48 98.0 87 18 132/67 98 05/02/16 20:43 97 Nasal Cannula 2.00 I/O 05/02/16 05/02/16 05/02/16 05/03/16 05/03/16 05/03/16 07:00 15:00 23:00 07:00 15:00 23:00 Intake Total 240 ml 350 ml 360 ml Output Total 700 ml 500 ml 350 ml Balance -460 ml -150 ml -350 ml 360 ml Intake Oral 240 ml 360 ml IV Total 350 ml Output Urine Total 700 ml 500 ml 350 ml # Voids 2 4 Result Diagram: 05/03/16 1409 05/03/16 0609 Objective Remarks - - - GENERAL: This is a well-nourished, well-developed patient, in no apparent distress. SKIN: No rashes, warm and dry HEAD: Atraumatic. Normocephalic. EYES: Pupils equal round and reactive. Extraocular motions intact. No scleral icterus. ENT: Nose without bleeding, or drainage, Airway patent. NECK: Trachea midline. Supple CARDIOVASCULAR: Regular rate and rhythm without murmurs, gallops, or rubs. RESPIRATORY: Diminished breath sounds bibasilar with some crackles GASTROINTESTINAL: Abdomen soft, non-tender, nondistended. Positive bowel sounds MUSCULOSKELETAL: Extremities without clubbing, cyanosis, +1 edema. Pedal pulses appreciated NEUROLOGICAL: Awake and alert. Moves all extremity. Normal speech.no focal neurological deficit A/P Assessment and Plan 81 years old male admitted with shortness of breath with coughing and hypoxia Bilateral pneumonia with pleural effusion +1 tube Staphylococcus epidermidis in the blood culture most likely contamination History of previous pleural effusion and thoracentesis by comic book writer dr.D' portillo unknown (transudative vs exudative ) Atrial fibrillation with rate controlled on diltiazem and beta dayana, elliquis Increase troponin mostly due to pneumonia Alcohol abuse, daily alcohol consumption Hypertension Hyperlipidemia History of coronary artery disease status post [place] 93 DVT prophylaxis on elliquis Plan: Follow repeated blood culture Reviewing and monitoring BMP, BNP 219-162 chest x-ray 05/03/16 showing atelectasis with pleural effusion right more than left>> planned for thoracentesis in a.m., hold elliquis Oxygen, DuoNeb, Rocephin Zithromax Morphine iv for pain and to improve respiration sputum culture when available, and Legionella pneumococcal urine antigen Appreciate pulmonary consultation, ordered ultrasound of the chest mostly another thoracentesis 2-D echo reviewed normal 55% EF Started on Lasix 40 mg twice a day Strict I& O Accu-Chek and insulin sliding scale CIWA protocol Resume home meds rec including diltiazem, metoprolol, and losartan for hypertension statin, Stephanie Waddell MD May 03, 2016 16:00
[2016-05-03 19:27] VITALS: O2SAT 96
[2016-05-03 19:40] VITALS: BP 138/88; PULSE 105; RESP 20; TEMP 98.4; O2SAT 93
[2016-05-03] MEDS: METOPROLOL TARTRATE 50 MG TAB PO SCH (20:59)
[2016-05-03] MEDS: GABAPENTIN 300 MG CAP PO SCH (21:00)
[2016-05-04] VITALS (7 sets, daily range): BP systolic 122–166; BP diastolic 68–87; PULSE 57–101; RESP 18–20; TEMP 97.9–98.2; O2SAT 91–97
[2016-05-04] MEDS: AZITHROMYCIN INJ 500 MG in SODIUM CHLOR 0.9% 250 ML INJ 250 ML IV SCH (05:13)
[2016-05-04] MEDS: INSULIN ASPART SUPPLEMENTAL SCALE SQ SCH ×2 (05:24→11:00)
[2016-05-04 05:48] LABS: BICARBONATE 34.3 MEQ/L (21.0-32.0); MAGNESIUM 1.8 MG/DL (1.5-2.5); POTASSIUM 3.2 MEQ/L (3.5-5.1)
[2016-05-04] MEDS: RESP: ALBUTEROL 2.5 MG/IPRATROPIUM 0.5 MG NEB (SCH) NEB ×2 (07:34→13:09)
[2016-05-04] MEDS: APIXABAN 5 MG TABLET PO SCH (08:24)
[2016-05-04] MEDS: cefTRIAXone INJ 1,000 MG in SODIUM CHLORIDE 0.9% INJ 100 ML IV SCH (10:05)
[2016-05-04] MEDS: DILTIAZEM-CD 180 MG CAP ER PO SCH (10:06)
[2016-05-04] MEDS: FOLIC ACID 1 MG TAB PO SCH (10:06)
[2016-05-04] MEDS: THIAMINE HCL 100 MG TAB PO SCH (10:06)
[2016-05-04] MEDS: FUROSEMIDE 40 MG/4 ML VIAL IV PUSH SCH (10:06)
[2016-05-04] MEDS: PRAVASTATIN SOD 40 MG TAB PO SCH (10:07)
[2016-05-04] MEDS: SODIUM CHLORIDE 0.9% FLUSH 5 ML FLUSH FLUSH SCH (10:07)
[2016-05-04] MEDS: LOSARTAN 50 MG TAB PO SCH (10:07)
[2016-05-04] MEDS: PANTOPRAZOLE SOD 20 MG DELAYED RELEASE TAB PO SCH (10:07)
[2016-05-04] MEDS: guaiFENesin E.R. 600 MG TAB PO SCH (10:07)
--- NOTE | 2016-05-04 11:22 | HHI.PR ---
Subjective Remarks Patient resting in bed reported breathing well, leg swelling going down Afebrile, plan for thoracentesis today, home neurology following Objective Vitals Vital Signs Date Time Temp Pulse Resp B/P Pulse Ox O2 Delivery O2 Flow Rate FiO2 05/04/16 08:13 97.9 87 20 166/72 91 05/04/16 07:36 93 2.00 05/04/16 05:12 98.0 57 18 129/69 97 05/04/16 00:31 98.2 67 18 133/87 97 05/03/16 19:40 98.4 105 20 138/88 93 05/03/16 19:27 96 05/03/16 16:00 95.7 88 18 135/76 94 05/03/16 12:24 96.7 91 18 161/79 95 I/O 05/03/16 05/03/16 05/03/16 05/04/16 05/04/16 05/04/16 07:00 15:00 23:00 07:00 15:00 23:00 Intake Total 360 ml Balance 360 ml Intake Oral 360 ml # Voids 4 Result Diagram: 05/03/16 1409 05/04/16 0452 Objective Remarks - - - GENERAL: This is a well-nourished, well-developed patient, in no apparent distress. SKIN: No rashes, warm and dry HEAD: Atraumatic. Normocephalic. EYES: Pupils equal round and reactive. Extraocular motions intact. No scleral icterus. ENT: Nose without bleeding, or drainage, Airway patent. NECK: Trachea midline. Supple CARDIOVASCULAR: Regular rate and rhythm without murmurs, gallops, or rubs. RESPIRATORY: Breath sounds were diminished on the right base with crackles GASTROINTESTINAL: Abdomen soft, non-tender, nondistended. Positive bowel sounds MUSCULOSKELETAL: Extremities without clubbing, cyanosis, +1 edema. Pedal pulses appreciated NEUROLOGICAL: Awake and alert. Moves all extremity. Normal speech.no focal neurological deficit A/P Assessment and Plan 81 years old male admitted with shortness of breath with coughing and hypoxia Bilateral pneumonia with pleural effusion +1 tube Staphylococcus epidermidis in the blood culture most likely contamination History of previous pleural effusion and thoracentesis by lithographic printing machinist dr.D' portillo unknown (transudative vs exudative ) Atrial fibrillation with rate controlled on diltiazem and beta dayana, elliquis Increase troponin mostly due to pneumonia Alcohol abuse, daily alcohol consumption Hypertension Hyperlipidemia History of coronary artery disease status post [place] 93 DVT prophylaxis on elliquis Plan: Plan for thoracentesis today, pulmonology following Negative repeated blood culture most likely contamination Daily monitoring BMP, BNP chest x-ray 05/03/16 showing atelectasis with pleural effusion right more than left>> planned for thoracentesis today, elliquis on hold, resume if stable after thoracentesis Oxygen, DuoNeb, Rocephin Zithromax Morphine iv for pain and to improve respiration sputum culture when available, and Legionella pneumococcal urine antigen 2-D echo reviewed normal 55% EF Continue and titrate diuresis with Lasix 40 mg twice a day Strict I& O Accu-Chek and insulin sliding scale CIWA protocol Resume home meds rec including diltiazem, metoprolol, and losartan for hypertension statin, Stephanie Waddell MD May 04, 2016 11:22
--- NOTE | 2016-05-04 13:24 | RADRPT ---
EXAM DATE/TIME: 05/04/2016 12:57 [facility] COMPARISON: CHEST PA & LAT, May 03, 2016, 8:07. INDICATIONS : Post thoracentesis. MEDICAL HISTORY : Myocardial infarction. Hypercholesterolemia. Arthritis. Heart blood clot. Afib. HTN. Type II Diabetes . SURGICAL HISTORY : Bilateral cataract surgery. Cardiac cath. G tube removed. Orthopedic surgery, back and fractured neck . Trach reversed. ENCOUNTER: Subsequent ACUITY: 3 days PAIN SCORE: 3/10 LOCATION: Bilateral chest FINDINGS: Persistent opacity noted in the left base representing effusion and clearing of the right base post t horacentesis with no pneumothorax CONCLUSION: Post right thoracentesis clearing and absence of effusion with no pneumothorax post thoracentesis Taras Ding MD on May 04, 2016 at 13:22 Board Certified Radiologist. This report was verified electronically.
[2016-05-04 13:37] LABS: TOTAL PROTEIN,PLEURAL FLUID 3.3 GM/DL
[2016-05-04] MEDS ORDERED: K-TA10TA PO (13:39)
[2016-05-04] MEDS ORDERED: FURO1TAB60 PO (13:39)
[2016-05-04 13:43] LABS: PLEURAL FLUID PH 8.5
[2016-05-04] MEDS ORDERED: CEFT500T3 PO (13:43)
--- NOTE | 2016-05-04 13:47 | HHI.DS ---
Discharge Summary Admission Date May 01, 2016 at 06:40 Discharge Date: May 04, 2016 Admitting Diagnosis bilateral pleural effusions, pneumonia, hypoxia, chest pain (1) Pleural effusion ICD Code: J90 (2) Pneumonia ICD Code: J18.9 (3) DM (diabetes mellitus) ICD Code: E11.9 (4) HTN (hypertension) ICD Code: I10 (5) CAD (coronary artery disease) ICD Code: I25.10 (6) Dysphagia ICD Code: R13.10 Procedures Thoracentesis Brief History - From Admission 81 years old male with history of A. fib, hypertension, hyper lipidemia, diabetes mellitus, coronary artery disease,H/O pleural effusion status post thoracentesis about a year ago by air traffic systems technician, presented with a complaint of 3 -4 days worsening short of breath with cough and greenish phlegm, no fever or chills, no hemoptysis, no abdominal pain diarrhea or constipation, orthopnea or PND. Patient denied recent flulike syndrome. He thought if the pleural effusion coming back. Chest x-ray showed bilateral infiltrate with pleural effusion, he does have edema in his legs but he is not on diuretic, he think he had a echocardiogram about a year or more ago at Dr. Harris office. He denied noncompliance with diet or consumption of salty food In ED patient was found to have elevated BNP of 173, elevated troponin, but no significant chest pain. CBC/BMP: 05/03/16 1409 05/04/16 0452 Significant Findings Laboratory Tests Test 05/02/16 05/03/16 05/03/16 05/04/16 04:15 06:09 14:09 04:52 Red Blood Count 3.89 MIL/MM3 4.35 MIL/MM3 (4.50-5.90) (4.50-5.90) Hemoglobin 12.2 GM/DL (13.0-17.0) Hematocrit 35.2 % (39.0-51.0) Neutrophils (%) (Auto) 75.5 % (16.0-70.0) Monocytes (%) (Auto) 9.4 % (0.0-8.0) Carbon Dioxide Level 34.1 MEQ/L 35.8 MEQ/L 34.3 MEQ/L (21.0-32.0) (21.0-32.0) (21.0-32.0) Estimat Glomerular Filtration 69 ML/MIN (>89) 66 ML/MIN (>89) 68 ML/MIN (>89) Rate Random Glucose 137 MG/DL 133 MG/DL 136 MG/DL (74-106) (74-106) (74-106) Calcium Level 8.4 MG/DL 8.4 MG/DL (8.5-10.1) (8.5-10.1) Aspartate Amino Transf 12 U/L (15-37) (AST/SGOT) B-Type Natriuretic Peptide 219 PG/ML 162 PG/ML 157 PG/ML (0-100) (0-100) (0-100) Albumin 3.0 GM/DL (3.4-5.0) Potassium Level 3.2 MEQ/L (3.5-5.1) PE at Discharge - - - GENERAL: This is a well-nourished, well-developed patient, in no apparent distress. SKIN: No rashes, warm and dry HEAD: Atraumatic. Normocephalic. EYES: Pupils equal round and reactive. Extraocular motions intact. No scleral icterus. ENT: Nose without bleeding, or drainage, Airway patent. NECK: Trachea midline. Supple CARDIOVASCULAR: Regular rate and rhythm without murmurs, gallops, or rubs. RESPIRATORY: Breath sounds diminished bibasilar GASTROINTESTINAL: Abdomen soft, non-tender, nondistended. Positive bowel sounds MUSCULOSKELETAL: Extremities without clubbing, cyanosis, +1 edema much improved than before. Pedal pulses appreciated NEUROLOGICAL: Awake and alert. Moves all extremity. Normal speech.no focal neurological deficit Hospital Course 81 years old male admitted with shortness of breath with coughing and hypoxia Bilateral pneumonia with pleural effusion +1 tube Staphylococcus epidermidis in the blood culture most likely contamination History of previous pleural effusion and thoracentesis by air traffic systems technician dr.D' portillo unknown (transudative vs exudative ) Atrial fibrillation with rate controlled on diltiazem and beta dayana, elliquis Increase troponin mostly due to pneumonia Alcohol abuse, daily alcohol consumption Hypertension Hyperlipidemia History of coronary artery disease status post [place] 93 DVT prophylaxis on elliquis Hospital course started with admission, O2 DuoNeb, consulted pulmonology Dr. Ahumada, started on iv Lasix with AYESHA, status post thoracentesis and 27/08/16, Patient had Negative repeated blood culture most likely contamination, repeated culture was negativ, Daily monitoring BMP, BNP chest x-ray 05/03/16 showing atelectasis with pleural effusion right [facility], patient started on Rocephin Zithromax Morphine iv for pain and to improve respiration, sputum culture when available, and Legionella pneumococcal urine antigen, 2-D echo reviewed normal 55% E Accu-Chek and insulin sliding scale CIWA protocol Resumed home meds rec including diltiazem, metoprolol, and losartan for hypertension statin, suzanne [id number] encounter performed with the patient on discharge day, as well as physical exam, summary of hospitalization course and postdischarge plan has been D/W the patient. And his CHF education also provided D/W nurse D/W air traffic systems technician Dr. Ahumada Discharge medications reviewed and printed and signed, post discharge follow up visit with PCP and other specialist as well as Brief hospital course and discharge summary has been placed. Pt Condition on Discharge: Fair Discharge Disposition: Discharge Home Discharge Time: > 30 minutes Discharge Instructions DIET: Follow Instructions for: Heart Healthy Diet, Diabetic Diet Fluid Restrictions: 1500 cc/day Activities you can perform: Weight Bearing as Marco Follow up Referrals: Pulmonology - 2 Weeks with Chris Cohen MD New Medications: Cefuroxime (Ceftin) 500 Mg Tab 500 MG PO BID Infection #10 Ref 0 TAB Furosemide (Lasix) 40 Mg Tab 40 MG PO BID chf #60 Ref 0 TAB Potassium Chloride ER (K-Tab) 10 Meq Tab 10 MEQ PO DAILY Electrolyte Replacement #30 Ref 0 TAB Continued Medications: Apixaban (Eliquis) 5 Mg Tab 5 MG PO BID Blood Clot Prevention #60 Ref 0 TAB Diltiazem CD 24 HR (Diltiazem CD 24 HR) 180 Mg Caper 180 MG PO BID #30 Ref 0 CAP Gabapentin (Gabapentin) 300 Mg Cap 300 MG PO HS #30 Ref 0 CAP Losartan (Losartan) 100 Mg Tab 100 MG PO DAILY Blood Pressure Management #30 Ref 0 TAB Meloxicam (Mobic) 7.5 Mg Tab 7.5 MG PO DAILY Pain Ref 0 TAB Metformin (Metformin) 850 Mg Tab 850 MG PO BIDPC With meals Blood Sugar Management Ref 0 TAB Metoprolol Tartrate (Metoprolol Tartrate) 50 Mg Tab 50 MG PO HS #30 Ref 0 TAB Omeprazole (Prilosec) 20 Mg Cap 20 MG PO DAILY #30 Ref 0 CAP Pravastatin (Pravastatin) 40 Mg Tab 40 MG PO DAILY Cholesterol Management #30 Ref 0 TAB Temazepam (Temazepam) 15 Mg Cap 15 MG PO HS PRN INSOMNIA #30 Ref 0 CAP Stephanie Bahena MD May 04, 2016 13:47
[2016-05-04 14:16] LABS: PLEURAL FLUID LYMPHS 89 %
--- NOTE | 2016-05-10 12:43 | MR ---
cc: FARHAT COLVIN M.D., JOHN DATE: 05/04/2016 PROCEDURE Right thoracentesis. PREOPERATIVE DIAGNOSIS Right pleural effusion. POSTOPERATIVE DIAGNOSIS Right effusion. SURGEON Dr. Ashly Cohen PROCEDURE AND FINDINGS The patient's right posterior back was prepped with chlorhexidine solution following which sterile drapes were applied. 1% Xylocaine was then injected into the intercostal space in the posterior axillary line after which a small incision was made with a scalpel blade. Following this a 14-gauge catheter was inserted into the pleural space. This was connected to a vacuum bottle. Approximately 750 cc of serosanguineous fluid was aspirated at which time the flow stopped. The patient tolerated the procedure well. Gamaliel Cohen MD JVD/LEAH /12:42 PM /12:34 PM
--- NOTE | 2016-05-23 10:44 | RSPPFT ---
DATE OF PROCEDURE: 05/03/16 COMMENTS: Spirometry demonstrates an FEV1 of 0.9 at 30% of predicted, FVC of 1.4 at 34%, FEF 25-75 at 18% of predicted. The post-bronchodilator study demonstrated no significant change. Flow volume loops suggest a restrictive pattern. IMPRESSION: 1. Moderately severe restrictive disease. 2. Additional mild to moderate obstructive disease. 3. Minimal response to acutely inhaled bronchodilator.
== END 2016-05-04 17:29 | disposition home or self-care (01) | DRG 186 ==
LOC: NEPC 04:35 → INTOOBSV 06:40 → NEDA 06:40 → NEPFCDU 13:33 → OBSVTOIN 05-04 13:40
PROVIDERS: ADMIT Hospitalist; ATTEND Hospitalist
PROC: 0W993ZZ Drainage of Right Pleural Cavity, Percutaneous Approach (ICD-10-PCS; principal; 2016-05-04)
DX: J90 Pleural effusion, not elsewhere classified (principal); J18.9 Pneumonia, unspecified organism; I50.9 Heart failure, unspecified; I48.91 Unspecified atrial fibrillation; E11.9 Type 2 diabetes mellitus without complications; R13.10 Dysphagia, unspecified; I42.9 Cardiomyopathy, unspecified; I10 Essential (primary) hypertension; I25.10 Atherosclerotic heart disease of native coronary artery without angina pectoris; I25.2 Old myocardial infarction; F10.10 Alcohol abuse, uncomplicated; E78.5 Hyperlipidemia, unspecified; E78.00 Pure hypercholesterolemia, unspecified; Z98.1 Arthrodesis status
CPT/HCPCS: 71010; 71020; 76604; 80048; 80053; 81001; 82150; 82550; 82552; 82945; 82948; 83605; 83615; 83735; 83880; 83986; 84100; 84157; 84484; 85025; 85027; 85610; 85730; 87015; 87040; 87070; 87102; 87116; 87186; 87205; 87206; 87449; 87804; 88112; 88305; 89051; 93005; 93306; 94060; 94640; 94664; G0378; J0456; J0696; J1815; J1940; J7050

== ENCOUNTER 2016-07-02 11:20 | Inpatient (IN) | payer MEDICARE, BC ==
[~2016-07-02] VITALS: Ht 170.2 cm; Wt 90.0 kg
[~2016-07-02 11:20] MED LIST changes: +BETA0.052 TOPICAL; -BETAM.05%T TOP; +CEFT500T3 PO; +DILT180C56 PO; -DILTCD240 PO; +FURO1TAB60 PO; -GABA300 PO; +GABA300C5 PO; +K-TA10TA PO; -METF850 PO; +METF850T PO; +MOBI7.5T PO; -MVI PO; -PRAV40 PO; +PRAV40TA2 PO; +PRIL20CA9 PO; -TEMA15 PO; +TEMA15CA PO
[2016-07-02 11:28] VITALS: BP 145/67; PULSE 54; RESP 24; TEMP 97.7; O2SAT 87
[2016-07-02] MEDS ORDERED: SODIUM CHLORIDE 0.9% FLUSH 10 ML FLUSH IVF PRN (12:00)
--- NOTE | 2016-07-02 12:09 | PD ---
HPI Chief Complaint: Respiratory Symptoms Time Seen by Provider: 11:53 Travel History International Travel<30 days: No Contact w/Intl Traveler<30days: No Traveled to known affect area: No History of Present Illness HPI This is an 81-year-old gentleman with a history of atrial fibrillation him a diabetes mellitus, recurrent pleural effusions, presents today with complaints of shortness of breath and weakness. The patient states that over the last 7 days he's had worsening shortness of breath however last night was worse in any of the other previous days. He states that this soon as he would lie flat, he was started coughing and having shortness of breath. He denies any fevers, chills. He denies any chest pain or chest pressure. He does state that his chest is tight when he coughs. There are no other complaints at the time of my examination. 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) High Cholesterol: Yes Chemotherapy: No Chest Pain: Yes Congestive Heart Failure: No COPD: No Cerebrovascular Accident: No Diabetes: Yes (TYPE 2) Patient Takes Glucophage: Yes (METFORMIN) Diminished Hearing: Yes Endocrine: No Gastrointestinal Disorders: No GERD: No Glaucoma: No Genitourinary: No Headaches: No Hepatitis: No Hiatal Hernia: No Hypertension: Yes Immune Disorder: No Kidney Stones: No Musculoskeletal: Yes (BACK PAIN FROM FALLING OUT OF TREE 3 YRS AGO) Neurologic: No Psychiatric: No Reproductive: No Respiratory: No Integumentary: No Migraines: No Myocardial Infarction: Yes (2 UT 1992) Radiation Therapy: No Renal Failure: No Seizures: No Sickle Cell Disease: No Sleep Apnea: No Thyroid Disease: No Ulcer: No Past Surgical History Abdominal Surgery: Yes (HAD G TUBE REMOVED 2013) AICD: No Arteriovenous Shunt: No Cardiac Surgery: Yes Ear Surgery: No Endocrine Surgery: No Eye Surgery: Yes (CATARACT SURGERY BILATERAL) Genitourinary Surgery: No Gynecologic Surgery: No Insulin Pump: No Joint Replacement: No Oral Surgery: No Pacemaker: No Thoracic Surgery: No Other Surgery: Yes (TRACH REVERSED 2013) Social History Alcohol Use: Yes (daily to occasionally) Tobacco Use: No Substance Use: No Allergies-Medications (Allergen,Severity, Reaction): Coded Allergies: No Known Allergies (Verified , 07/02/16) Reported Meds & Prescriptions Reported Meds & Active Scripts Active Ceftin (Cefuroxime Axetil) 500 Mg Tab 500 Mg PO BID Lasix (Furosemide) 40 Mg Tab 40 Mg PO BID K-Tab (Potassium Chloride) 10 Meq Tab 10 Meq PO DAILY Reported Betamethasone Dipropionate Topical 0.05% Cream 1 Applic TOPICAL DIRECTED Prilosec (Omeprazole) 20 Mg Cap 20 Mg PO DAILY Mobic (Meloxicam) 7.5 Mg Tab 7.5 Mg PO DAILY Pravastatin 40 Mg Tab 40 Mg PO DAILY Temazepam 15 Mg Cap 15 Mg PO HS PRN Gabapentin 300 Mg Cap 300 Mg PO HS Diltiazem CD 24 HR 180 Mg Caper 180 Mg PO BID Losartan (Losartan Potassium) 100 Mg Tab 100 Mg PO DAILY Metformin (Metformin HCl) 850 Mg Tab 850 Mg PO BIDPC With meals Metoprolol Tartrate 50 Mg Tab 50 Mg PO HS Eliquis (Apixaban) 5 Mg Tab 5 Mg PO BID Review of Systems Except as stated in HPI: all other systems reviewed are Neg General / Constitutional: No: Fever, Chills HENT: No: Headaches, Lightheadedness Cardiovascular: Positive: Irregular Rhythm (history of A. fib), No: Chest Pain or Discomfort, Palpitations Respiratory: Positive: Cough, Shortness of Breath, No: Wheezing Gastrointestinal: No: Nausea, Vomiting, Diarrhea, Abdominal Pain Musculoskeletal: Positive: Weakness (generalized), No: Pain Neurologic: Positive: Weakness, No: Dizziness, Headache, Change in Mentation Physical Exam Narrative GENERAL: Well-developed well-nourished male in mild to moderate respiratory discomfort. SKIN: Warm and dry. HEAD: Atraumatic. Normocephalic. EYES:No scleral icterus. No injection or drainage. ENT: Mucous membranes pink and moist. NECK: Trachea midline. Supple. No JVD. CARDIOVASCULAR: Irregularly irregular with a rate of 89. RESPIRATORY: Decreased breath sounds on the right lung with absent sounds [address] the lung field. Fine Rales heard at the lower third lung field on the left. GASTROINTESTINAL: Abdomen soft, non-tender, nondistended. MUSCULOSKELETAL: No obvious deformities. Trace edema bilaterally. NEUROLOGICAL: Awake and alert. No obvious cranial nerve deficits. Motor grossly within normal limits. Normal speech. PSYCHIATRIC: Appropriate mood and affect; insight and judgment normal. Data Data Last Documented VS Vital Signs Date Time Temp Pulse Resp B/P Pulse Ox O2 Delivery O2 Flow Rate FiO2 07/02/16 12:46 91 Nasal Cannula 3 07/02/16 11:28 97.7 54 24 145/67 Orders Complete Blood Count With Diff (07/02/16 11:55) Comprehensive Metabolic Panel (07/02/16 11:55) Ckmb (Isoenzyme) Profile (07/02/16 11:55) Troponin I (07/02/16 11:55) Iv Access Insert/Monitor (07/02/16 11:55) Electrocardiogram (07/02/16 11:55) Ecg Monitoring (07/02/16 11:55) Oximetry (07/02/16 11:55) Oxygen Administration (07/02/16 11:55) Chest, Single Ap (07/02/16 11:55) Sodium Chloride 0.9% Flush (Ns Flush) (07/02/16 12:00) Diet Heart Healthy (07/02/16 Dinner) Diet 1800 Ada Cons Carb (07/02/16 Dinner) Vital Signs (Adult) CHUCK.Q4H (07/02/16 14:13) Resp Oxygen Dominic C Titrat 1-4 L (07/02/16 ) Diltiazem Cd (Cardizem Cd) (07/02/16 21:00) Furosemide (Lasix) (07/02/16 21:00) Gabapentin (Neurontin) (07/02/16 21:00) Losartan (Cozaar) (07/03/16 09:00) Metoprolol Tartrate (Lopressor) (07/02/16 21:00) Potassium Chloride (Kcl) (07/03/16 09:00) Pravastatin (Pravachol) (07/03/16 09:00) Pantoprazole (Protonix) (07/03/16 09:00) ^ Blood Glucose Goal (Criteria (07/02/16 14:15) ^ Hypoglycemia 51 - 69 Mg/Dl (07/02/16 14:15) ^ Hypoglycemia 50 Mg/Dl Or < (07/02/16 14:15) ^ Notify Dr: Other (07/02/16 14:15) Dextrose 50% In Joceline (Vial) Inj (D50w (Vi (07/02/16 14:15) Glucagon Inj (Glucagon Inj) (07/02/16 14:15) Insulin Aspart Supplemtl Scale (Novolog (07/02/16 16:00) Albuterol-Ipratropium Neb (Duoneb Neb) (07/02/16 14:15) Labs Laboratory Tests Test 07/02/16 12:10 White Blood Count 11.7 TH/MM3 Red Blood Count 4.08 MIL/MM3 Hemoglobin 12.8 GM/DL Hematocrit 37.2 % Mean Corpuscular Volume 91.1 FL Mean Corpuscular Hemoglobin 31.4 PG Mean Corpuscular Hemoglobin 34.5 % Concent Red Cell Distribution Width 14.1 % Platelet Count 323 TH/MM3 Mean Platelet Volume 7.5 FL Neutrophils (%) (Auto) 83.3 % Lymphocytes (%) (Auto) 8.1 % Monocytes (%) (Auto) 7.8 % Eosinophils (%) (Auto) 0.4 % Basophils (%) (Auto) 0.4 % Neutrophils # (Auto) 9.8 TH/MM3 Lymphocytes # (Auto) 1.0 TH/MM3 Monocytes # (Auto) 0.9 TH/MM3 Eosinophils # (Auto) 0.0 TH/MM3 Basophils # (Auto) 0.0 TH/MM3 CBC Comment DIFF FINAL Differential Comment Sodium Level 141 MEQ/L Potassium Level 3.6 MEQ/L Chloride Level 103 MEQ/L Carbon Dioxide Level 27.1 MEQ/L Anion Gap 11 MEQ/L Blood Urea Nitrogen 13 MG/DL Creatinine 1.03 MG/DL Estimat Glomerular Filtration 69 ML/MIN Rate Random Glucose 124 MG/DL Calcium Level 9.0 MG/DL Total Bilirubin 0.6 MG/DL Aspartate Amino Transf 20 U/L (AST/SGOT) Alanine Aminotransferase 25 U/L (ALT/SGPT) Alkaline Phosphatase 77 U/L Total Creatine Kinase 86 U/L Troponin I LESS THAN 0.02 NG/ML Total Protein 7.9 GM/DL Albumin 3.7 GM/DL [facility] Medical Decision Making Medical Screen Exam Complete: Yes Emergency Medical Condition: Yes Differential Diagnosis Pneumonia versus recurrent effusion versus CHF Narrative Course 81-year-old male with a history of A. fib, CHF, recent pleural effusion that was drained, presents today with worsening shortness of breath. Patient states it's worse when he lies flat. Patient has bilateral large pleural effusions. The case was discussed with Dr. Gamaliel Ochoa, patient's neurologist. He has been down to see him in the ER and will arrange to do a thoracentesis. The patient's currently taking AND will be held for 24 hours. Diagnosis Primary Impression: symptomatic bilateral pleural effusions Additional Impressions: Atrial fibrillation DM (diabetes mellitus) Jacoby Bach MD Jul 02, 2016 12:09
[2016-07-02 12:28] LABS: AUTOMATED NEUTROPHIL # 9.8 TH/MM3 (1.8-7.7); BASOPHIL % 0.4 % (0.0-2.0); EOSINOPHIL % 0.4 % (0.0-4.0); HEMATOCRIT 37.2 % (39.0-51.0); HEMO FLAGS DIFF FINAL; LYMPH % 8.1 % (9.0-44.0); MEAN CELL VOLUME 91.1 FL (80.0-100.0); MEAN CORPUSCULAR HEMOGLOBIN 31.4 PG (27.0-34.0); MEAN CORPUSCULAR HGB CONC 34.5 % (32.0-36.0); MONO % 7.8 % (0.0-8.0); NEUT % 83.3 % (16.0-70.0); PLATELET COUNT 323 TH/MM3 (150-450); RED BLOOD COUNT 4.08 MIL/MM3 (4.50-5.90); RED CELL DISTRIBUTION WIDTH 14.1 % (11.6-17.2); WHITE BLOOD COUNT 11.7 TH/MM3 (4.0-11.0)
--- NOTE | 2016-07-02 12:43 | RADRPT ---
EXAM DATE/TIME: 07/02/2016 12:16 [facility] COMPARISON: CHEST SINGLE AP, May 04, 2016, 12:57. INDICATIONS : Shortness of breath and chest pain. MEDICAL HISTORY : Myocardial infarction. Hypercholesterolemia. Arthritis. Heart blood clot. Afib. HTN. Type II Diabetes . SURGICAL HISTORY : Bilateral cataract surgery. Cardiac cath. ENCOUNTER: Initial ACUITY: 2 days PAIN SCORE: 3/10 LOCATION: chest FINDINGS: Single AP upright portable view of the chest demonstrates interval development of a moderate to large right-sided pleural effusion. The pleural fluid seen within the left lung base appears increased in volume as compared to the prior exam. The heart size appears enlarged but obscured by the adjacent pleural fluid. There is a cardiac monito r present in the posterior fusion hardware is seen within the lower thoracic spine.The lung apices ap pear well aerated. CONCLUSION: Worsening left sided pleural fluid and new large right-sided pleural fluid. Na Zamudio MD on July 02, 2016 at 12:39 Board Certified Radiologist. This report was verified electronically.
[2016-07-02 12:45] LABS: ANION GAP 11 MEQ/L (5-15); AST (GOT) 20 U/L (15-37); BICARBONATE 27.1 MEQ/L (21.0-32.0); BLOOD UREA NITROGEN 13 MG/DL (7-18); CHLORIDE 103 MEQ/L (98-107); GLOMERULAR FILTRATION RATE 69 ML/MIN (>89); POTASSIUM 3.6 MEQ/L (3.5-5.1); SODIUM (NA) 141 MEQ/L (136-145)
[2016-07-02 12:46] VITALS: O2SAT 91
[2016-07-02 12:49] LABS: ALKALINE PHOSPHATASE 77 U/L (45-117); ALT (GPT) 25 U/L (12-78); TOTAL BILIRUBIN ADULT 0.6 MG/DL (0.2-1.0)
[2016-07-02 12:51] LABS: CREATINE KINASE 86 U/L (39-308)
[2016-07-02] MEDS ORDERED: DEXTROSE 50% IN WATER 50 ML VIAL(D50) IV PUSH PRN (14:15)
[2016-07-02] MEDS ORDERED: RESP: ALBUTEROL 2.5 MG/IPRATROPIUM 0.5 MG NEB (PRN) NEB (14:15)
[2016-07-02] MEDS ORDERED: GLUCAGON 1 MG/ML VIAL OTHER PRN (14:15)
[2016-07-02] MEDS ORDERED: ACETAMINOPHEN 325 MG TAB PO PRN (14:45)
[2016-07-02] MEDS ORDERED: ONDANSETRON HCL 4 MG/2 ML VIAL IV PUSH PRN (14:45)
--- NOTE | 2016-07-02 14:50 | HHI.HP ---
[facility] Abhay Woods MD Admission Diagnosis symptomatic bilateral pleural effusions. Diabetes mellitus. Diagnoses: (1) Pleural effusion Diagnosis: Principal Chief Complaint: worsening sob Travel History International Travel<30 Days: No Contact w/Intl Traveler <30 Da: No Traveled to Known Affected Are: No History of Present Illness patient is a 81 y/o male with recurrent pleural effusion who presented to ER with worsening sob. he was admitted to this hospital about two months ago and had thoracentesis at at the time. he says that he started to have worsening sob again about a week ago. he has occasional cough. he denies any fever, chills or chest pain. Review of Systems Constitutional: DENIES: Fever, Weight loss, Chills, Night Sweats Eyes: DENIES: Blurred vision, Diplopia, Vision loss, Double Vision Ears, nose, mouth, throat: DENIES: Tinnitus, Vertigo, Throat pain, Epistaxis Respiratory: COMPLAINS OF: Shortness of breath, DENIES: Apneas, Cough, Snoring , Wheezing, Hemoptysis, Sputum production Cardiovascular: DENIES: Chest pain, Palpitations, Syncope, Dyspnea on Exertion , PND, Lower Extremity Edema, Orthopnea, Claudication Gastrointestinal: DENIES: Abdominal pain, Black stools, Bloody stools, Constipation, Diarrhea, Nausea, Vomiting, Difficulty Swallowing, Anorexia Genitourinary: DENIES: Urinary frequency, Urgency, Hematuria, Dysuria Musculoskeletal: DENIES: Joint pain, Muscle aches, Stiffness, Joint Swelling Integumentary: DENIES: Rash Neurologic: DENIES: Abnormal gait, Headache, Localized weakness, Paresthesias, Seizures, Speech Problems, Tremor, Poor Balance Psychiatric: DENIES: Anxiety, Confusion, Mood changes, Depression, Hallucinations, Agitation, Suicidal Ideation, Homicidal Ideation, Delusions Past Family Social History Past Medical History atrial fibrillation hypertension diabetes mellitus dyslipidemia CAD Past Surgical History back surgery appendectomy Reported Medications Betamethasone Dipropionate Topical 0.05% Cream 1 Applic TOPICAL DIRECTED Prilosec (Omeprazole) 20 Mg Cap 20 Mg PO DAILY Mobic (Meloxicam) 7.5 Mg Tab 7.5 Mg PO DAILY Pravastatin 40 Mg Tab 40 Mg PO DAILY Temazepam 15 Mg Cap 15 Mg PO HS PRN Gabapentin 300 Mg Cap 300 Mg PO HS Diltiazem CD 24 HR 180 Mg Caper 180 Mg PO BID Losartan (Losartan Potassium) 100 Mg Tab 100 Mg PO DAILY Metformin (Metformin HCl) 850 Mg Tab 850 Mg PO BIDPC With meals Metoprolol Tartrate 50 Mg Tab 50 Mg PO HS Eliquis (Apixaban) 5 Mg Tab 5 Mg PO BID Allergies: Coded Allergies: No Known Allergies (Verified , 07/02/16) Active Ordered Medications Current Medications Sodium Chloride (NS Flush) 2 ml UNSCH PRN IVF FLUSH AFTER USING IV ACCESS; Start 07/02/16 at 12:00 Diltiazem HCl (Cardizem Cd) 180 mg BID PO ; Start 07/02/16 at 21:00 Furosemide (Lasix) 40 mg BID PO ; Start 07/02/16 at 21:00 Gabapentin (Neurontin) 300 mg HS PO ; Start 07/02/16 at 21:00 Losartan Potassium (Cozaar) 100 mg DAILY PO ; Start 07/03/16 at 09:00 Metoprolol Tartrate (Lopressor) 50 mg HS PO ; Start 07/02/16 at 21:00 Potassium Chloride (KCl) 10 meq DAILY PO ; Start 07/03/16 at 09:00 Pravastatin Sodium (Pravachol) 40 mg DAILY PO ; Start 07/03/16 at 09:00 Pantoprazole Sodium (Protonix) 20 mg DAILY PO ; Start 07/03/16 at 09:00 Albuterol/ Ipratropium (Duoneb Neb) 1 ampule Q4HR NEB PRN NEB SHORTNESS OF BREATH; Start 07/02/16 at 14:15 Dextrose (D50w (Vial) Inj) 25 ml UNSCH PRN IV PUSH HYPOGLYCEMIA-SEE COMMENTS; Start 07/02/16 at 14:15 Glucagon (Glucagon Inj) 1 mg UNSCH PRN OTHER HYPOGLYCEMIA-SEE COMMENTS; Start 07/02/16 at 14:15 Insulin Aspart (NovoLOG SUPPLEMENTAL SCALE) 1 ACHS SLIDING SCALE SQ ; Start at 16:00 Family History breast cancer in sister. Social History quit smoking years ago. drinks occasionally. Physical Exam Vital Signs Vital Signs Date Time Temp Pulse Resp B/P Pulse Ox O2 Delivery O2 Flow Rate FiO2 07/02/16 12:46 91 Nasal Cannula 3 07/02/16 12:46 91 Nasal Cannula 3 07/02/16 11:28 97.7 54 24 145/67 87 Room Air Physical Exam GENERAL: This is a well-nourished, well-developed patient, in no apparent distress. SKIN: No rashes, ecchymoses or lesions. Cool and dry. HEAD: Atraumatic. Normocephalic. No temporal or scalp tenderness. EYES: Pupils equal round and reactive. Extraocular motions intact. No scleral icterus. No injection or drainage. ENT: Nose without bleeding, purulent drainage or septal hematoma. Throat without erythema, tonsillar hypertrophy or exudate. Uvula midline. Airway patent. NECK: Trachea midline. No JVD or lymphadenopathy. Supple, nontender, no meningeal signs. CARDIOVASCULAR: Regular rate and rhythm without murmurs, gallops, or rubs. RESPIRATORY: diminished air entry on the right base GASTROINTESTINAL: Abdomen soft, non-tender, nondistended. No hepato-splenomegaly , or palpable masses. No guarding. MUSCULOSKELETAL: Extremities without clubbing, cyanosis, or edema. No joint tenderness, effusion, or edema noted. No calf tenderness. Negative Homans sign bilaterally. NEUROLOGICAL: Awake and alert. Cranial nerves II through XII intact. Motor and sensory grossly within normal limits. Five out of 5 muscle strength in all muscle groups. Normal speech. Laboratory Laboratory Tests Test 07/02/16 12:10 White Blood Count 11.7 Red Blood Count 4.08 Hemoglobin 12.8 Hematocrit 37.2 Mean Corpuscular Volume 91.1 Mean Corpuscular Hemoglobin 31.4 Mean Corpuscular Hemoglobin 34.5 Concent Red Cell Distribution Width 14.1 Platelet Count 323 Mean Platelet Volume 7.5 Neutrophils (%) (Auto) 83.3 Lymphocytes (%) (Auto) 8.1 Monocytes (%) (Auto) 7.8 Eosinophils (%) (Auto) 0.4 Basophils (%) (Auto) 0.4 Neutrophils # (Auto) 9.8 Lymphocytes # (Auto) 1.0 Monocytes # (Auto) 0.9 Eosinophils # (Auto) 0.0 Basophils # (Auto) 0.0 CBC Comment DIFF FINAL Differential Comment Sodium Level 141 Potassium Level 3.6 Chloride Level 103 Carbon Dioxide Level 27.1 Anion Gap 11 Blood Urea Nitrogen 13 Creatinine 1.03 Estimat Glomerular Filtration 69 Rate Random Glucose 124 Calcium Level 9.0 Total Bilirubin 0.6 Aspartate Amino Transf 20 (AST/SGOT) Alanine Aminotransferase 25 (ALT/SGPT) Alkaline Phosphatase 77 Total Creatine Kinase 86 Troponin I LESS THAN 0.02 Total Protein 7.9 Albumin 3.7 Result Diagram: 07/02/16 1210 07/02/16 1210 Imaging Last Impressions Chest X-Ray 07/02/16 1155 Signed Impressions: Service Date/Time: Saturday, July 02, 2016 12:16 - CONCLUSION: Worsening left sided pleural fluid and new large right-sided pleural fluid. Na Zamudio MD Assessment and Plan Assessment and Plan A/P - recurrent pleural effusion keep on oxygen to keep O2 sat > 90%- continue neb treatment will consult pulmonary.] recent echo with EF 50-55%. -hypertension; resume home meds -atrial fibrillation; continue cardizem and metoprolol- hold eliquis for thoracentesis -CAD- on BB and statin -diabetes mellitus; accu-check with SSI -dyslipidemia; on statin -DVT prophylaxis with SCD's- will resume eliquid after the thoracentesis Discussed Condition With ER physician and the patient. Physician Certification 2 Midnight Certification Type: Admission for Inpatient Services Order for Inpatient Services The services are ordered in accordance with Medicare regulations or non- Medicare payer requirements, as applicable. In the case of services not specified as inpatient-only, they are appropriately provided as inpatient services in accordance with the 2-midnight benchmark. Estimated LOS (days): 2 days is the estimated time the patient will need to remain in the hospital, assuming treatment plan goals are met and no additional complications. Post-Hospital Plan: Home Martita De Los Santos MD Jul 02, 2016 14:50
[2016-07-02 15:55] LABS: APTT (PATIENT) 28.9 SEC (24.3-30.1); INTERNATIONAL NORMALIZED RATIO 1.1 RATIO; PROTHROMBIN TIME - PATIENT 12.2 SEC (9.8-11.6)
[2016-07-02] MEDS: INSULIN ASPART SUPPLEMENTAL SCALE SQ SCH ×2 (16:00→19:54)
[2016-07-02 16:30] VITALS: BP 193/98; PULSE 86; RESP 18; TEMP 97.1; O2SAT 94
[2016-07-02] MEDS: FUROSEMIDE 40 MG TAB PO SCH (19:46)
[2016-07-02] MEDS: DILTIAZEM-CD 180 MG CAP ER PO SCH (19:46)
[2016-07-02] MEDS: GABAPENTIN 300 MG CAP PO SCH (19:47)
[2016-07-02] MEDS: METOPROLOL TARTRATE 50 MG TAB PO SCH (19:47)
[2016-07-02 20:00] VITALS: BP 197/99; PULSE 93; RESP 19; TEMP 96.8; O2SAT 94
[2016-07-02 23:30] VITALS: BP 166/118; PULSE 75; RESP 18; TEMP 96.9; O2SAT 94
[2016-07-02 23:35] VITALS: BP 152/90
--- NOTE | 2016-07-02 23:49 | RADRPT ---
EXAM DATE/TIME: 07/02/2016 22:46 [facility] COMPARISON: US CHEST LEFT, May 02, 2016, 15:42. EXTERNAL COMPARISON : [facility], XR CHEST PA & LAT, January 25, 2016 INDICATIONS : Pleural effusion. MEDICAL HISTORY : Hypercholesterolemia. Myocardial infarction. Hypertension. Afib. Arthritis. Diabetes. Hearing loss. SURGICAL HISTORY : Bilateral cataract removal. Cardiac catheterization. G tube placement and removal. Back surgery. Neck surgery. ENCOUNTER: Subsequent ACUITY: 1 day PAIN SCORE: 2/10 LOCATION: Left chest MEASUREMENTS: SKIN TO PARIETAL PLEURA: 2.7 cm SKIN TO MAX SAFE DEPTH: 4.4 cm ESTIMATED FLUID VOLUME: 455 cc FLUID COMPOSITION: simple FINDINGS: Pleural effusion as above. A tanner was placed on the skin surface superficial to the pleural fluid col lection. CONCLUSION: Moderate size left effusion. Willie Pemberton Jr., MD on July 02, 2016 at 23:47 Board Certified Radiologist. This report was verified electronically.
--- NOTE | 2016-07-02 23:49 | RADRPT ---
EXAM DATE/TIME: 07/02/2016 22:43 [facility] COMPARISON: US CHEST RIGHT, May 02, 2016, 15:37. EXTERNAL COMPARISON : [facility], XR CHEST PA & LAT, January 25, 2016 INDICATIONS : Pleural effusion. MEDICAL HISTORY : Hypercholesterolemia. Hypertension. Myocardial infarction. Afib. Arthritis. Diabetes. Hearing loss. SURGICAL HISTORY : Bilateral cataract removal. Cardiac catheterization. G tube placement and removal. Back surgery. Neck surgery. ENCOUNTER: Subsequent ACUITY: 1 day PAIN SCORE: 2/10 LOCATION: Right chest MEASUREMENTS: SKIN TO PARIETAL PLEURA: 2.6 cm SKIN TO MAX SAFE DEPTH: 5.5 cm ESTIMATED FLUID VOLUME: 965 cc FLUID COMPOSITION: simple FINDINGS: Pleural effusion as above. A tanner was placed on the skin surface superficial to the pleural fluid col lection. CONCLUSION: 1. Large right effusion. Willie Pemberton Jr., MD on July 02, 2016 at 23:47 Board Certified Radiologist. This report was verified electronically.
[2016-07-03] VITALS (7 sets, daily range): BP systolic 159–168; BP diastolic 78–96; PULSE 86–101; RESP 17–20; TEMP 96.1–98.1; O2SAT 92–96
[2016-07-03] MEDS: INSULIN ASPART SUPPLEMENTAL SCALE SQ SCH ×4 (06:14→21:41)
[2016-07-03] MEDS: PANTOPRAZOLE SOD 20 MG DELAYED RELEASE TAB PO SCH (07:50)
[2016-07-03] MEDS: FUROSEMIDE 40 MG TAB PO SCH ×2 (07:51→21:38)
[2016-07-03] MEDS: LOSARTAN 50 MG TAB PO SCH (07:51)
[2016-07-03] MEDS: POTASSIUM CHLORIDE 10 MEQ CONTROLLED RELEASE TAB PO SCH (07:51)
[2016-07-03] MEDS: DILTIAZEM-CD 180 MG CAP ER PO SCH ×2 (07:52→21:38)
[2016-07-03] MEDS: PRAVASTATIN SOD 40 MG TAB PO SCH (07:52)
--- NOTE | 2016-07-03 08:21 | MB ---
cc: Chris BRIGHT M.D. DATE OF CONSULTATION: 07/02/2016 REASON FOR CONSULTATION Pleural effusion and respiratory insufficiency. HISTORY OF PRESENT ILLNESS This is a 81-year-old white male with a history of recurrent pleural effusion and history for COPD, was brought to the emergency room with shortness of breath and orthopnea. The patient had previous hospitalization 2 months ago, at which time a thoracentesis was done and he had done well following thoracentesis and had been on diuretics, but apparently recently his diuretic therapy was reduced and he is taking only 10 mg of Lasix, according to him. He denies any fevers or chills and night sweats but has noticed some increased leg swelling over the past 2 weeks. He has had orthopnea and denies nausea and vomiting. PAST MEDICAL HISTORY The patient's past history has included: 1. History of atrial fibrillation and CHF. 2. History of hypertension. 3. History of diabetes mellitus, type 2. 4. Dyslipidemia. 5. He has had lumbar disk surgery. 6. Appendectomy. MEDICATION Medication list included: 1. Mobic 7.5 mg a day. 2. Gabapentin 300 mg at bedtime. 3. Temazepam 15 mg h.s. 4. Cardizem 180 mg b.i.d. 5. Losartan 100 mg daily. 6. Metformin 850 mg b.i.d. 7. Metoprolol 50 mg at bedtime. 8. Eliquis 5 mg b.i.d. 9. Prilosec 20 mg a day. ALLERGIES None listed. HABITS The patient does not smoke presently, in the past he has smoked for about 25 years. Alcohol use - occasional. FAMILY HISTORY Significant for carcinoma of the breast. REVIEW OF SYSTEMS The patient has gained weight. He has leg swelling. He has dizzy attacks, postnasal drip. He has epigastric distress and reflux. He has urinary frequency. Denies leg or calf muscle pains. He has joint pains to the extremities and trouble ambulating. His other system review is negative. PHYSICAL EXAMINATION GENENERAL: This is a well-built elderly man who is sitting upright and mildly dyspneic at rest. VITAL SIGNS: His blood pressure is 138/80, pulse is 56, respirations 16, temperature 97.5. HEENT: Head normocephalic. Pupils reactive. Tongue moist. Nasal mucosa edematous. Ears, no inflammation. Throat was clear. NECK: Supple. No lymphadenopathy. Trachea midline. CHEST: Equal movements with wheezes scattered bilaterally, prolonged expirations. Diminished breath sounds over the right lower chest with occasional bibasilar crackles. HEART: The heart sounds are irregular, S1-S2. No murmur. No S3 gallop. ABDOMEN: Soft, protuberant. No masses or organomegaly or tenderness. Bowel sounds are active. EXTREMITIES: Mild varicosities and decreased peripheral pulses. Reflexes are 1+ with no gross motor deficits. Cranial nerves grossly intact. RECTAL: Exam is deferred. SKIN: No lesions observed. IMPRESSION 1. Recurrent pleural effusions with atelectasis and hypoxemia. 2. CHF and ASHD. 3. History of hypertension. 4. Diabetes mellitus type 2. 5. Atrial fibrillation. PLAN The patient is advised that ultrasound examination of the chest will be obtained and a thoracentesis planned, nebulized DuoNeb solution added t.i.d. The patient was advised of the risk of the thoracentesis including pneumothorax and bleeding. We will have to hold off on Eliquis for 36 hours prior to doing the thoracentesis and a coag profile repeated. The patient will be continued on diuretic therapy including Lasix 40 mg a day. Thank you Dr. Bach for this consultation. MD ELIZABETH Sotomayor/SNOW /12:34 AM /7:58 AM
--- NOTE | 2016-07-03 08:21 | HHI.PR ---
Subjective Remarks resting comfortably with no distress. sob has improved to some extent. no fever. no other complaints. Objective Vitals Vital Signs Date Time Temp Pulse Resp B/P Pulse Ox O2 Delivery O2 Flow Rate FiO2 07/03/16 04:00 98.1 90 18 159/96 96 07/03/16 00:06 94 Nasal Cannula 2.50 07/02/16 23:35 152/90 07/02/16 23:30 96.9 75 18 166/118 94 07/02/16 20:00 96.8 93 19 197/99 94 07/02/16 16:30 97.1 86 18 193/98 94 07/02/16 12:46 91 Nasal Cannula 3 07/02/16 12:46 91 Nasal Cannula 3 07/02/16 11:28 97.7 54 24 145/67 87 Room Air I/O 07/02/16 07/02/16 07/02/16 07/03/16 07/03/16 07/03/16 07:00 15:00 23:00 07:00 15:00 23:00 Intake Total 240 ml 240 ml Output Total 600 ml 2500 ml Balance -360 ml -2260 ml Intake Oral 240 ml 240 ml Output Urine Total 600 ml 2500 ml # Bowel Movements 0 1 Result Diagram: 07/02/16 1210 07/02/16 1210 Imaging Last Impressions Chest X-Ray 07/02/16 1155 Signed Impressions: Service Date/Time: Saturday, July 02, 2016 12:16 - CONCLUSION: Worsening left sided pleural fluid and new large right-sided pleural fluid. Na Zamudio MD Chest Ultrasound 07/02/16 0000 Signed Impressions: Service Date/Time: Saturday, July 02, 2016 22:46 - CONCLUSION: Moderate size left effusion. Willie Pemberton Jr., MD Objective Remarks GENERAL: This is a well-nourished, well-developed patient, in no apparent distress. CARDIOVASCULAR: Regular rate and regular rhythm without murmurs, gallops, or rubs. RESPIRATORY: diminished air entry bilaterally GASTROINTESTINAL: Abdomen soft, non-tender, nondistended. Normal, active bowel sounds MUSCULOSKELETAL: Extremities without clubbing, cyanosis, or edema. NEURO: Alert & Oriented x4 to person, place, time, situation. Moves all ext x4 Procedures none Medications and IVs Current Medications Sodium Chloride (NS Flush) 2 ml UNSCH PRN IVF FLUSH AFTER USING IV ACCESS; Start 07/02/16 at 12:00 Diltiazem HCl (Cardizem Cd) 180 mg BID PO Last administered on 07/03/16 07:52 ; Start 07/02/16 at 21:00 Furosemide (Lasix) 40 mg BID PO Last administered on 07/03/16 07:51; Start at 21:00 Gabapentin (Neurontin) 300 mg HS PO Last administered on 07/02/16 19:47; Start 07/02/16 at 21:00 Losartan Potassium (Cozaar) 100 mg DAILY PO Last administered on 07/03/16 07: 51; Start 07/03/16 at 09:00 Metoprolol Tartrate (Lopressor) 50 mg HS PO Last administered on 07/02/16 19: 47; Start 07/02/16 at 21:00 Potassium Chloride (KCl) 10 meq DAILY PO Last administered on 07/03/16 07:51; Start 07/03/16 at 09:00 Pravastatin Sodium (Pravachol) 40 mg DAILY PO Last administered on 07/03/16 07 :52; Start 07/03/16 at 09:00 Pantoprazole Sodium (Protonix) 20 mg DAILY PO Last administered on 07/03/16 07 :50; Start 07/03/16 at 09:00 Albuterol/ Ipratropium (Duoneb Neb) 1 ampule Q4HR NEB PRN NEB SHORTNESS OF BREATH; Start 07/02/16 at 14:15 Dextrose (D50w (Vial) Inj) 25 ml UNSCH PRN IV PUSH HYPOGLYCEMIA-SEE COMMENTS; Start 07/02/16 at 14:15 Glucagon (Glucagon Inj) 1 mg UNSCH PRN OTHER HYPOGLYCEMIA-SEE COMMENTS; Start 07/02/16 at 14:15 Insulin Aspart (NovoLOG SUPPLEMENTAL SCALE) 1 ACHS SLIDING SCALE SQ Last administered on 07/02/16 19:54; Start 07/02/16 at 16:00 Acetaminophen (Tylenol) 650 mg Q4H PRN PO PAIN 1-10 / FEVER; Start 07/02/16 at 14:45 Ondansetron HCl (Zofran Inj) 4 mg Q8HR PRN IV PUSH NAUSEA; Start 07/02/16 at 14 :45 A/P Assessment and Plan A/P - recurrent pleural effusion keep on oxygen to keep O2 sat > 90%- continue diuretic and neb treatment consulted pulmonary-plan for thoracentesis recent echo with EF 50-55%. -hypertension; resumed home meds- vasotec prn -atrial fibrillation; continue cardizem and metoprolol- hold eliquis for thoracentesis -CAD- on BB and statin -diabetes mellitus; accu-check with SSI -dyslipidemia; on statin -DVT prophylaxis with SCD's- will resume eliquid after the thoracentesis Martita De Los Santos MD Jul 03, 2016 08:21
[2016-07-03] MEDS ORDERED: ENALAPRILAT 1.25 MG/ML VIAL IV PUSH PRN (08:30)
--- NOTE | 2016-07-03 14:18 | HHI.PR ---
Subjective Remarks Has some SOB at rest. On o2 2 L. US shows a large right effusion. He had taken Eliquis yesterday Objective Vital Signs Date Time Temp Pulse Resp B/P Pulse Ox O2 Delivery O2 Flow Rate FiO2 07/03/16 11:50 96.4 91 20 162/78 96 07/03/16 07:50 96.1 86 20 166/92 95 Automatic Cuff 07/03/16 04:00 98.1 90 18 159/96 96 07/03/16 00:06 94 Nasal Cannula 2.50 07/02/16 23:35 152/90 07/02/16 23:30 96.9 75 18 166/118 94 07/02/16 20:00 96.8 93 19 197/99 94 07/02/16 16:30 97.1 86 18 193/98 94 I/O 07/02/16 07/02/16 07/02/16 07/03/16 07/03/16 07/03/16 07:00 15:00 23:00 07:00 15:00 23:00 Intake Total 240 ml 240 ml Output Total 600 ml 2500 ml Balance -360 ml -2260 ml Intake Oral 240 ml 240 ml Output Urine Total 600 ml 2500 ml # Bowel Movements 0 1 Result Diagram: 07/02/16 1210 07/02/16 1210 Objective Remarks GENENERAL: This is a well-built elderly man who is sitting upright and mildly dyspneic at rest. HEENT: Head normocephalic. Pupils reactive. Tongue moist. Nasal mucosa edematous. Ears, no inflammation. Throat was clear. NECK: Supple. No lymphadenopathy. Trachea midline. CHEST: Equal movements with wheezes scattered bilaterally, prolonged expirations. Diminished breath sounds over the right lower chest with occasional bibasilar crackles. HEART: The heart sounds are irregular, S1-S2. No murmur. No S3 gallop. ABDOMEN: Soft, protuberant. No masses or organomegaly or tenderness. Bowel sounds are active. EXTREMITIES: Mild varicosities and decreased peripheral pulses. Reflexes are 1+ with no gross motor deficits. Cranial nerves grossly intact. RECTAL: Exam is deferred. SKIN: No lesions observed. Assessment and Plan Assessment and Plan IMPRESSION 1. Recurrent pleural effusions with atelectasis and hypoxemia. 2. CHF and ASHD. 3. History of hypertension. 4. Diabetes mellitus type 2. 5. Atrial fibrillation. Plan : 1. Continue O2 2L. 2. Hold Eliquis. 3. Thoracentesis in am. 4. Continue Duonebs tid. 5. CBC,BMP in am Chris Cohen MD Jul 03, 2016 14:18
--- NOTE | 2016-07-03 15:05 | EKG ---
Date Performed: 07/02/2016 Time Performed: 12:09:58 PTAGE: 81 years EKG: ATRIAL FIBRILLATION WITH SLOW VENTRICULAR RESPONSE INFERIOR MYOCARDIAL INFARCTION Since pre vious tracing, no significant change noted ABNORMAL ECG PREVIOUS TRACING : 05/01/2016 05.11 DOCTOR: Bal Howard Interpretating Date/Time 07/03/2016 15:05:01
[2016-07-03] MEDS: GABAPENTIN 300 MG CAP PO SCH (21:38)
[2016-07-03] MEDS: METOPROLOL TARTRATE 50 MG TAB PO SCH (21:38)
[2016-07-04] VITALS: BP 162/90
[2016-07-04 04:00] VITALS: BP 160/86; PULSE 64; RESP 16; TEMP 97.9; O2SAT 94
[2016-07-04] MEDS: INSULIN ASPART SUPPLEMENTAL SCALE SQ SCH ×2 (06:14→11:30)
[2016-07-04] MEDS: DILTIAZEM-CD 180 MG CAP ER PO SCH (07:58)
[2016-07-04] MEDS: POTASSIUM CHLORIDE 10 MEQ CONTROLLED RELEASE TAB PO SCH (07:58)
[2016-07-04] MEDS: PRAVASTATIN SOD 40 MG TAB PO SCH (07:58)
[2016-07-04] MEDS: FUROSEMIDE 40 MG TAB PO SCH (07:58)
[2016-07-04] MEDS: LOSARTAN 50 MG TAB PO SCH (07:58)
[2016-07-04] MEDS: PANTOPRAZOLE SOD 20 MG DELAYED RELEASE TAB PO SCH (07:58)
[2016-07-04 08:00] VITALS: BP 174/100; PULSE 85; RESP 18; TEMP 98.2; O2SAT 93
--- NOTE | 2016-07-04 08:54 | HHI.PR ---
Subjective Remarks in no acute distress. overall doing fine. no fever. sob has improved. Objective Vitals Vital Signs Date Time Temp Pulse Resp B/P Pulse Ox O2 Delivery O2 Flow Rate FiO2 07/04/16 04:00 97.9 64 16 160/86 94 07/04/16 00:00 162/90 07/03/16 20:00 97.4 95 17 159/86 94 07/03/16 15:00 96.8 101 20 168/90 96 07/03/16 14:44 92 21 07/03/16 11:50 96.4 91 20 162/78 96 I/O 07/03/16 07/03/16 07/03/16 07/04/16 07/04/16 07/04/16 07:00 15:00 23:00 07:00 15:00 23:00 Intake Total 240 ml 360 ml 480 ml 240 ml Output Total 2500 ml 250 ml 850 ml Balance -2260 ml 110 ml 480 ml -610 ml Intake Oral 240 ml 360 ml 480 ml 240 ml Output Urine Total 2500 ml 250 ml 850 ml # Voids 2 # Bowel Movements 1 1 0 0 Result Diagram: 07/02/16 1210 07/02/16 1210 Imaging Last Impressions Chest X-Ray 07/02/16 1155 Signed Impressions: Service Date/Time: Saturday, July 02, 2016 12:16 - CONCLUSION: Worsening left sided pleural fluid and new large right-sided pleural fluid. Na Zamudio MD Chest Ultrasound 07/02/16 0000 Signed Impressions: Service Date/Time: Saturday, July 02, 2016 22:46 - CONCLUSION: Moderate size left effusion. Willie Pemberton Jr., MD Objective Remarks GENERAL: This is a well-nourished, well-developed patient, in no apparent distress. CARDIOVASCULAR: Regular rate and regular rhythm without murmurs, gallops, or rubs. RESPIRATORY: diminished air entry bilaterally GASTROINTESTINAL: Abdomen soft, non-tender, nondistended. Normal, active bowel sounds MUSCULOSKELETAL: Extremities without clubbing, cyanosis, or edema. NEURO: Alert & Oriented x4 to person, place, time, situation. Moves all ext x4 Procedures none Medications and IVs Current Medications Sodium Chloride (NS Flush) 2 ml UNSCH PRN IVF FLUSH AFTER USING IV ACCESS; Start 07/02/16 at 12:00 Diltiazem HCl (Cardizem Cd) 180 mg BID PO Last administered on 07/04/16 07:58 ; Start 07/02/16 at 21:00 Furosemide (Lasix) 40 mg BID PO Last administered on 07/04/16 07:58; Start at 21:00 Gabapentin (Neurontin) 300 mg HS PO Last administered on 07/03/16 21:38; Start 07/02/16 at 21:00 Losartan Potassium (Cozaar) 100 mg DAILY PO Last administered on 07/04/16 07: 58; Start 07/03/16 at 09:00 Metoprolol Tartrate (Lopressor) 50 mg HS PO Last administered on 07/03/16 21: 38; Start 07/02/16 at 21:00 Potassium Chloride (KCl) 10 meq DAILY PO Last administered on 07/04/16 07:58; Start 07/03/16 at 09:00 Pravastatin Sodium (Pravachol) 40 mg DAILY PO Last administered on 07/04/16 07 :58; Start 07/03/16 at 09:00 Pantoprazole Sodium (Protonix) 20 mg DAILY PO Last administered on 07/04/16 07 :58; Start 07/03/16 at 09:00 Albuterol/ Ipratropium (Duoneb Neb) 1 ampule Q4HR NEB PRN NEB SHORTNESS OF BREATH; Start 07/02/16 at 14:15 Dextrose (D50w (Vial) Inj) 25 ml UNSCH PRN IV PUSH HYPOGLYCEMIA-SEE COMMENTS; Start 07/02/16 at 14:15 Glucagon (Glucagon Inj) 1 mg UNSCH PRN OTHER HYPOGLYCEMIA-SEE COMMENTS; Start 07/02/16 at 14:15 Insulin Aspart (NovoLOG SUPPLEMENTAL SCALE) 1 ACHS SLIDING SCALE SQ Last administered on 07/02/16 19:54; Start 07/02/16 at 16:00 Acetaminophen (Tylenol) 650 mg Q4H PRN PO PAIN 1-10 / FEVER; Start 07/02/16 at 14:45 Ondansetron HCl (Zofran Inj) 4 mg Q8HR PRN IV PUSH NAUSEA; Start 07/02/16 at 14 :45 Enalaprilat (Vasotec Inj) 1.25 mg Q8H PRN IV PUSH SBP> OR = 180, DBP> OR = 100 ; Start 07/03/16 at 08:30 A/P Assessment and Plan A/P - recurrent pleural effusion keep on oxygen to keep O2 sat > 90%- continue diuretic and neb treatment consulted pulmonary-plan for thoracentesis today. recent echo with EF 50-55%. -hypertension; resumed home meds- vasotec prn -atrial fibrillation; continue cardizem and metoprolol- hold eliquis for thoracentesis -CAD- on BB and statin -diabetes mellitus; accu-check with SSI -dyslipidemia; on statin -DVT prophylaxis with SCD's- will resume eliquid after the thoracentesis Martita De Los Santos MD Jul 04, 2016 08:54
[2016-07-04 12:00] VITALS: BP 160/92; PULSE 77; RESP 20; TEMP 97.4; O2SAT 94
--- NOTE | 2016-07-04 13:19 | RADRPT ---
EXAM DATE/TIME: 07/04/2016 12:49 [facility] COMPARISON: CHEST SINGLE AP, July 02, 2016, 12:16. INDICATIONS : Post right lung thoracentesis. MEDICAL HISTORY : Diabetes mellitus type II. Hypercholesterolemia. Myocardial infarction. Hypertension. A-fib. Lo op recorder. SURGICAL HISTORY : Cardiac catheterization ENCOUNTER: Subsequent ACUITY: 1 day PAIN SCORE: 0/10 LOCATION: Right chest FINDINGS: Patient status post thoracentesis on the right. There is no pneumothorax. Small effusion persist on the left. Transpedicular fixation is noted. Cardiac monitoring device is evident. CONCLUSION: There is no pneumothorax following thoracentesis on the right. Daren Godinez MD FACR on July 04, 2016 at 13:10 Board Certified Radiologist. This report was verified electronically.
[2016-07-04 14:11] LABS: TOTAL PROTEIN,PLEURAL FLUID 3.4 GM/DL
[2016-07-04 14:28] LABS: PLEURAL FLUID LYMPHS 73 %
[2016-07-04 15:00] VITALS: BP 158/96; PULSE 95; RESP 18; TEMP 97.2; O2SAT 93
--- NOTE | 2016-07-04 15:05 | HHI.DCPOC ---
Discharge Care Plan Diagnosis: (1) Pleural effusion Your Health Problems Are: Shortness of Breath Goals to Promote Your Health * To prevent worsening of your condition and complications * To maintain your health at the optimal level Directions to Meet Your Goals Take your medications as prescribed Follow your dietary instruction Follow activity as directed Keep your appointments as scheduled Take your immunizations and boosters as scheduled If your symptoms worsen call your PCP, if no PCP go to Urgent Care Center or Emergency Room Smoking is Dangerous to Your Health. Avoid second hand smoke Call the 24-hour hour crisis hotline for domestic abuse at Martita De Los Santos MD Jul 04, 2016 15:05
--- NOTE | 2016-07-04 15:06 | HHI.DS ---
Discharge Summary Admission Date Jul 02, 2016 at 14:35 Discharge Date: Jul 04, 2016 Admitting Diagnosis symptomatic bilateral pleural effusions. Diabetes mellitus. (1) Pleural effusion ICD Code: J90 Diagnosis: Principal Procedures thoracentesis Brief History - From Admission patient is a 81 y/o male with recurrent pleural effusion who presented to ER with worsening sob. he was admitted to this hospital about two months ago and had thoracentesis at at the time. he says that he started to have worsening sob again about a week ago. he has occasional cough. he denies any fever, chills or chest pain. CBC/BMP: 07/02/16 1210 07/02/16 1210 Significant Findings Laboratory Tests Test 07/02/16 07/02/16 07/04/16 12:10 13:10 12:30 White Blood Count 11.7 TH/MM3 (4.0-11.0) Red Blood Count 4.08 MIL/MM3 (4.50-5.90) Hemoglobin 12.8 GM/DL (13.0-17.0) Hematocrit 37.2 % (39.0-51.0) Neutrophils (%) (Auto) 83.3 % (16.0-70.0) Lymphocytes (%) (Auto) 8.1 % (9.0-44.0) Neutrophils # (Auto) 9.8 TH/MM3 (1.8-7.7) Estimat Glomerular Filtration 69 ML/MIN (>89) Rate Random Glucose 124 MG/DL (74-106) Troponin I LESS THAN 0.02 NG/ML (0.02-0.05) Prothrombin Time 12.2 SEC (9.8-11.6) Pleural Fluid WBC 1042 /MM3 (0-10) Pleural Fluid RBC 94168 /MM3 (0-0) Imaging Last Impressions Chest X-Ray 07/04/16 0000 Signed Impressions: Service Date/Time: Monday, July 04, 2016 12:49 - CONCLUSION: There is no pneumothorax following thoracentesis on the right. Daren Godinez MD FACR Chest Ultrasound 07/02/16 0000 Signed Impressions: Service Date/Time: Saturday, July 02, 2016 22:46 - CONCLUSION: Moderate size left effusion. Willie Pemberton Jr., MD PE at Discharge GENERAL: This is a well-nourished, well-developed patient, in no apparent distress. CARDIOVASCULAR: Regular rate and regular rhythm without murmurs, gallops, or rubs. RESPIRATORY: diminished air entry bilaterally GASTROINTESTINAL: Abdomen soft, non-tender, nondistended. Normal, active bowel sounds MUSCULOSKELETAL: Extremities without clubbing, cyanosis, or edema. NEURO: Alert & Oriented x4 to person, place, time, situation. Moves all ext x4 Hospital Course - recurrent pleural effusion keep on oxygen to keep O2 sat > 90%- continue diuretic and neb treatment consulted pulmonary-s/p thoracentesis recent echo with EF 50-55%. -hypertension; resumed home meds- vasotec prn -atrial fibrillation; continue cardizem and metoprolol- hold eliquis for thoracentesis -CAD- on BB and statin -diabetes mellitus; accu-check with SSI -dyslipidemia; on statin Pt Condition on Discharge: Good Discharge Disposition: Discharge Home Discharge Time: <= 30 minutes Discharge Instructions DIET: Follow Instructions for: Heart Healthy Diet, Diabetic Diet Activities you can perform: Regular-No Restrictions Follow up Referrals: PCP Follow-up Pulmonology Continued Medications: Apixaban (Eliquis) 5 Mg Tab 5 MG PO BID Blood Clot Prevention #60 Ref 0 TAB Betamethasone Dipropionate Topical (Betamethasone Dipropionate Topical) 0.05% Cream 1 APPLIC TOPICAL DIRECTED Dermatoses #15 Ref 0 GM Diltiazem CD 24 HR (Diltiazem CD 24 HR) 180 Mg Caper 180 MG PO BID #30 Ref 0 CAP Furosemide (Lasix) 40 Mg Tab 40 MG PO BID chf #60 Ref 0 TAB Gabapentin (Gabapentin) 300 Mg Cap 300 MG PO HS #30 Ref 0 CAP Losartan (Losartan) 100 Mg Tab 100 MG PO DAILY Blood Pressure Management #30 Ref 0 TAB Metformin (Metformin) 850 Mg Tab 850 MG PO BIDPC With meals Blood Sugar Management Ref 0 TAB Metoprolol Tartrate (Metoprolol Tartrate) 50 Mg Tab 50 MG PO HS #30 Ref 0 TAB Omeprazole (Prilosec) 20 Mg Cap 20 MG PO DAILY #30 Ref 0 CAP Potassium Chloride ER (K-Tab) 10 Meq Tab 10 MEQ PO DAILY Electrolyte Replacement #30 Ref 0 TAB Pravastatin (Pravastatin) 40 Mg Tab 40 MG PO DAILY Cholesterol Management #30 Ref 0 TAB Temazepam (Temazepam) 15 Mg Cap 15 MG PO HS PRN INSOMNIA #30 Ref 0 CAP Discontinued Medications: Cefuroxime (Ceftin) 500 Mg Tab 500 MG PO BID Infection #10 Ref 0 TAB Meloxicam (Mobic) 7.5 Mg Tab 7.5 MG PO DAILY Pain Ref 0 TAB Martita De Los Santos MD Jul 04, 2016 15:06
--- NOTE | 2016-07-04 15:13 | HHI.PR ---
Addendum To [facility] Progress Not Reason for addendum: Additonal documentation (patient had thoracentesis. he was cleared for discharge by pulmnoary - will dc home with f/u with his pcp and pulmonary- d/w the RN.) Martita De Los Santos MD Jul 04, 2016 15:13
--- NOTE | 2016-07-06 10:41 | MR ---
cc: [facility] DATE 07/04/2016 PROCEDURE Right thoracentesis PREOPERATIVE DIAGNOSIS Right pleural effusion ANESTHESIA 1% Xylocaine SURGEON Dr. Ashly Cohen PROCEDURE AND FINDINGS The patient's right posterior back was prepped with chlorhexidine solution following sterile drapes were applied. 1% Xylocaine was then injected in the intercostal space in the posterior axillary line after which a small incision was made with a scalpel blade. Following this, a 14-gauge catheter was inserted into the pleural space which was connected to a vacuum bottle. Approximately 800 mL of serosanguineous fluid was aspirated at which time the flow stopped. The patient tolerated the procedure well. MD ELIZABETH Sotomayor/BENITO /12:45 PM /10:30 AM
== END 2016-07-04 15:38 | disposition home or self-care (01) | DRG 187 ==
LOC: NEPC 11:20 → NEDA 14:35 → HOCB 16:38
PROVIDERS: ADMIT Internal Medicine; ATTEND Internal Medicine
PROC: 0W993ZX Drainage of Right Pleural Cavity, Percutaneous Approach, Diagnostic (ICD-10-PCS; principal; 2016-07-04)
DX: J90 Pleural effusion, not elsewhere classified (principal); J98.11 Atelectasis; I50.9 Heart failure, unspecified; I48.91 Unspecified atrial fibrillation; J44.9 Chronic obstructive pulmonary disease, unspecified; E11.9 Type 2 diabetes mellitus without complications; M19.90 Unspecified osteoarthritis, unspecified site; E78.00 Pure hypercholesterolemia, unspecified; H91.90 Unspecified hearing loss, unspecified ear; I10 Essential (primary) hypertension; M54.9 Dorsalgia, unspecified; I25.2 Old myocardial infarction; Z79.84 Long term (current) use of oral hypoglycemic drugs; Z79.02 Long term (current) use of antithrombotics/antiplatelets; E78.5 Hyperlipidemia, unspecified; I25.10 Atherosclerotic heart disease of native coronary artery without angina pectoris; Z87.891 Personal history of nicotine dependence; I83.93 Asymptomatic varicose veins of bilateral lower extremities; R09.02 Hypoxemia
CPT/HCPCS: 71010; 76604; 80053; 82550; 82945; 82948; 83615; 83986; 84157; 84484; 85025; 85610; 85730; 87015; 87070; 87102; 87116; 87205; 87206; 88112; 88305; 89051; 93005; J1815

== ENCOUNTER 2017-05-20 22:43 | Inpatient (IN) | payer MEDICARE, BC ==
[~2017-05-20] VITALS: Ht 172.7 cm; Wt 90.0 kg
[~2017-05-20 22:43] MED LIST changes: -CEFT500T3 PO; -MOBI7.5T PO
[2017-05-20 22:45] VITALS: O2SAT 77
[2017-05-20 22:56] VITALS: BP_SYST 219; BP_SYST 229; BP_DIAS 118; BP_DIAS 127; PULSE 105; RESP 26; TEMP 97.9; O2SAT 96
[2017-05-20] MEDS ORDERED: FURO1TAB60 PO (23:08)
[2017-05-20] MEDS ORDERED: DILT120T PO (23:08)
[2017-05-20] MEDS ORDERED: CYAN1TAB24 PO (23:08)
[2017-05-20] MEDS ORDERED: OCUVTAB4 PO (23:08)
[2017-05-20] MEDS ORDERED: SYMB160A INH (23:08)
[2017-05-20] MEDS ORDERED: MELO7.5T27 PO (23:08)
[2017-05-20] MEDS ORDERED: METO25TA3 PO (23:08)
[2017-05-20] MEDS ORDERED: ATOR20TA15 PO (23:08)
[2017-05-20] MEDS ORDERED: CENTCHW4 CHEW (23:08)
[2017-05-20] MEDS ORDERED: POTA-163 PO (23:08)
[2017-05-20] MEDS ORDERED: OMEP20TA93 PO (23:08)
--- NOTE | 2017-05-20 23:13 | PD ---
HPI Chief Complaint: Chest Pain Time Seen by Provider: 23:07 Travel History International Travel<30 days: No Contact w/Intl Traveler<30days: No Traveled to known affect area: No History of Present Illness HPI 82-year-old male presents to the emergency department for progressive shortness of breath over the past 2 days with worsening today. Patient denies any chest pain. Patient denies any swelling of the lower extremities. Patient has had bilateral pleural effusions requiring drainage in the past. 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 Patient denies any fever or chills. Patient denies chest pain. Patient has had no productive cough nausea vomiting referred neck child back shoulder arm pain. 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) High Cholesterol: Yes Chemotherapy: No Chest Pain: Yes Congestive Heart Failure: No COPD: Yes Cerebrovascular Accident: No Diabetes: Yes (TYPE 2) Patient Takes Glucophage: Yes Diminished Hearing: Yes Endocrine: No Gastrointestinal Disorders: No GERD: No Glaucoma: No Genitourinary: No Headaches: No Hepatitis: No Hiatal Hernia: No Hypertension: Yes Immune Disorder: No Kidney Stones: No Musculoskeletal: Yes (BACK PAIN FROM FALLING OUT OF TREE 3 YRS AGO) Neurologic: No Psychiatric: No Reproductive: No Respiratory: Yes (THORACENTESIS X3) Integumentary: No Migraines: No Myocardial Infarction: Yes (2 IA 1992) Radiation Therapy: No Renal Failure: No Seizures: No Sickle Cell Disease: No Sleep Apnea: No Thyroid Disease: No Ulcer: No Tetanus Vaccination: > 5 Years Influenza Vaccination: Yes Past Surgical History Abdominal Surgery: Yes (HAD G TUBE REMOVED 2013) AICD: No Arteriovenous Shunt: No Cardiac Surgery: Yes Ear Surgery: No Endocrine Surgery: No Eye Surgery: Yes (CATARACT SURGERY BILATERAL) Genitourinary Surgery: No Gynecologic Surgery: No Insulin Pump: No Joint Replacement: No Oral Surgery: No Pacemaker: No Thoracic Surgery: No Other Surgery: Yes (TRACH REVERSED 2013) Social History Alcohol Use: Yes (daily to occasionally) Tobacco Use: No Substance Use: No Allergies-Medications (Allergen,Severity, Reaction): Coded Allergies: No Known Allergies (Verified Allergy, Unknown, 05/21/17) Reported Meds & Prescriptions Reported Meds & Active Scripts Active Reported B12 (Cyanocobalamin) 1,000 Mcg Tab 5,000 Mcg PO DAILY Symbicort Inh (Budesonide/Formoterol Fumarate) 160-4.5 Mcg/Act Aero 1 Puff INH Q12HR Preservision Areds (Multiple Vitamins W/ Minerals) 1 Tab 1 Tab PO DAILY Centrum (Multiple Vitamins W/ Minerals) 1 Chew 1 Tab CHEW DAILY Potassium Chloride ER (Potassium Chloride) 20 Meq Tab 20 Meq PO DAILY Omeprazole 20 Mg Tab 20 Mg PO DAILY Atorvastatin (Atorvastatin Calcium) 20 Mg Tab 20 Mg PO HS Meloxicam 7.5 Mg Tab 7.5 Mg PO DAILY Metoprolol Tartrate 25 Mg Tab 50 Mg PO DAILY Diltiazem (Diltiazem HCl) 120 Mg Tab 180 Mg PO BID Lasix (Furosemide) 40 Mg Tab 40 Mg PO DAILY Betamethasone Dipropionate Topical 0.05% Cream 1 Applic TOPICAL DIRECTED Gabapentin 300 Mg Cap 300 Mg PO HS Losartan (Losartan Potassium) 100 Mg Tab 100 Mg PO DAILY Metformin (Metformin HCl) 850 Mg Tab 850 Mg PO BIDPC With meals Eliquis (Apixaban) 5 Mg Tab 5 Mg PO BID Review of Systems Except as stated in HPI: all other systems reviewed are Neg General / Constitutional: No: Fever, Chills HENT: No: Congestion Cardiovascular: No: Chest Pain or Discomfort, Edema Respiratory: Positive: Cough, Shortness of Breath, Wheezing Gastrointestinal: No: Abdominal Pain Genitourinary: No: Flank Pain Musculoskeletal: No: Edema Skin: No Rash Neurologic: No: Weakness Psychiatric: No: Anxiety Hematologic/Lymphatic: No: Lymph Node Enlargement Physical Exam Narrative GENERAL: Well-developed well-nourished male in obvious respiratory discomfort in mild distress with initial room air O2 saturation 77% increases to 94% on 2 L SKIN: Warm and dry. HEAD: Normocephalic. EYES: No scleral icterus. No injection or drainage. NECK: Supple, trachea midline. No JVD or lymphadenopathy. CARDIOVASCULAR: Regular rate and rhythm without murmurs, gallops, or rubs. RESPIRATORY: Breath sounds equal bilaterally. No accessory muscle use. GASTROINTESTINAL: Abdomen soft, non-tender, nondistended. MUSCULOSKELETAL: No cyanosis, or edema. BACK: Nontender without obvious deformity. No CVA tenderness. Data Data Last Documented VS Vital Signs Date Time Temp Pulse Resp B/P (MAP) Pulse Ox O2 Delivery O2 Flow Rate FiO2 05/21/17 02:30 98 24 157/77 (103) 93 Nasal Cannula 3.00 05/20/17 22:56 97.9 Orders Orders Electrocardiogram (05/20/17 22:46) Complete Blood Count With Diff (05/20/17 22:46) Basic Metabolic Panel (Bmp) (05/20/17 22:46) Ckmb (Isoenzyme) Profile (05/20/17 22:46) Troponin I (05/20/17 22:46) Chest, Single Ap (05/20/17 22:46) Iv Access Insert/Monitor (05/20/17 22:46) Ecg Monitoring (05/20/17 22:46) Oxygen Administration (05/20/17 22:46) Oximetry (05/20/17 22:46) Prothrombin Time / Inr (Pt) (05/20/17 22:46) B-Type Natriuretic Peptide (05/20/17 22:49) Urinalysis - C+S If Indicated (05/20/17 22:49) D-Dimer (05/20/17 22:50) Nitroglycerin 2% Oint (Nitroglycerin 2% (05/20/17 23:15) Furosemide Inj (Lasix Inj) (05/20/17 23:15) Ct Pulmonary Angiogram (05/21/17 ) Enalaprilat Inj (Vasotec Inj) (05/21/17 01:00) Nitroglycerin 2% Oint (Nitroglycerin 2% (05/21/17 01:00) Iohexol 350 Inj (Omnipaque 350 Inj) (05/21/17 01:53) Admit Order (Ed Use Only) (05/21/17 ) Mosaic Floor Layer / Telemetry CHUCK.Q8H (05/21/17 03:13) Diet Heart Healthy (05/21/17 Breakfast) Activity Oob With Assistance (05/21/17 03:13) Notify Dr: Other (05/21/17 03:13) Labs Laboratory Tests Test 05/20/17 22:56 05/20/17 23:20 White Blood Count 9.9 TH/MM3 Red Blood Count 4.23 MIL/MM3 Hemoglobin 13.0 GM/DL Hematocrit 38.0 % Mean Corpuscular Volume 89.7 FL Mean Corpuscular Hemoglobin 30.8 PG Mean Corpuscular Hemoglobin Concent 34.3 % Red Cell Distribution Width 14.9 % Platelet Count 298 TH/MM3 Mean Platelet Volume 7.6 FL Neutrophils (%) (Auto) 74.3 % Lymphocytes (%) (Auto) 15.6 % Monocytes (%) (Auto) 7.9 % Eosinophils (%) (Auto) 1.6 % Basophils (%) (Auto) 0.6 % Neutrophils # (Auto) 7.4 TH/MM3 Lymphocytes # (Auto) 1.5 TH/MM3 Monocytes # (Auto) 0.8 TH/MM3 Eosinophils # (Auto) 0.2 TH/MM3 Basophils # (Auto) 0.1 TH/MM3 CBC Comment DIFF FINAL Differential Comment D-Dimer Quantitative (PE/DVT) 1.96 MG/L FEU Blood Urea Nitrogen 13 MG/DL Creatinine 1.15 MG/DL Random Glucose 139 MG/DL Calcium Level 9.1 MG/DL Sodium Level 139 MEQ/L Potassium Level 3.8 MEQ/L Chloride Level 103 MEQ/L Carbon Dioxide Level 31.1 MEQ/L Anion Gap 5 MEQ/L Estimat Glomerular Filtration Rate 61 ML/MIN Total Creatine Kinase 78 U/L Troponin I LESS THAN 0.02 NG/ML B-Type Natriuretic Peptide 287 PG/ML Urine Color LIGHT-YELLOW Urine Turbidity CLEAR Urine pH 6.5 Urine Specific [place] 1.011 Urine Protein 100 mg/dL Urine Glucose (UA) NEG mg/dL Urine Ketones NEG mg/dL Urine Occult Blood NEG Urine Nitrite NEG Urine Bilirubin NEG Urine Urobilinogen LESS THAN 2.0 MG/DL Urine Leukocyte Esterase NEG Urine RBC 1 /hpf Urine WBC LESS THAN 1 /hpf Urine Hyaline Casts 1 /lpf Microscopic Urinalysis Comment CULT NOT INDICATED MDM Medical Decision Making Medical Screen Exam Complete: Yes Emergency Medical Condition: Yes Medical Record Reviewed: Yes Interpretation(s) EKG: Atrial fibrillation with controlled ventricular rate of [address] elevation injury pattern change noted nonspecific ST-T changes Differential Diagnosis Dyspnea, CHF, pneumonia, pleural effusion, PE, ACS Narrative Course Patient placed on classroom monitor with continuous pulse oximetry supplemental oxygen administered patient administered Lasix 40 mg IV as well as Nitropaste 1 inch to chest wall Patient resting comfortably with diuresis and improvement of blood pressure Chest x-ray reveals bilateral pleural effusions with congestive heart failure D-dimer is elevated 1.96 CT pulmonary angiogram ordered CT pulmonary angiogram negative for PE Cardiac enzymes are grossly within normal range except for mild elevation of BNP Patient's case discussed with on-call medicine for admission Physician Communication Physician Communication discussed with DR Crump for admission Diagnosis Primary Impression: CHF (congestive heart failure) Additional Impressions: Pleural effusion HTN (hypertension) Hypoxia Admitting Information Admitting Physician Requests: Admit Macey Hall MD May 20, 2017 23:13
[2017-05-20] MEDS ORDERED: NITROGLYCERIN 2% OINT 1 GM PACKET TOPICAL ONE (23:15)
[2017-05-20] MEDS ORDERED: FUROSEMIDE 40 MG/4 ML VIAL IV PUSH ONE (23:15)
--- NOTE | 2017-05-20 23:23 | RADRPT ---
EXAM DATE/TIME: 05/20/2017 23:05 [facility] COMPARISON: CHEST SINGLE AP, July 04, 2016, 12:49. INDICATIONS : Shortness of breath. MEDICAL HISTORY : Hypertension. Diabetes mellitus type II. Hypercholesterolemia. Myocardial infarction. SURGICAL HISTORY : Fusion, thoracic. Loop recorder ENCOUNTER: Initial ACUITY: 2 days PAIN SCORE: 0/10 LOCATION: Bilateral chest FINDINGS: A single view of the chest demonstrates moderate-sized bilateral pleural effusions with basilar and p erihilar airspace disease. Cardiomegaly. Previous spine fixation. Loop recorder on the left. CONCLUSION: 1. Cardiomegaly with bilateral effusions and pulmonary edema pattern most characteristic of congestiv e heart failure. Asa Douglass MD on May 20, 2017 at 23:21 Board Certified Radiologist. This report was verified electronically.
[2017-05-20 23:43] LABS: AUTOMATED NEUTROPHIL # 7.4 TH/MM3 (1.8-7.7); BASOPHIL # 0.1 TH/MM3 (0-0.2); BASOPHIL % 0.6 % (0.0-2.0); EOSINOPHIL # 0.2 TH/MM3 (0-0.4); EOSINOPHIL % 1.6 % (0.0-4.0); LYMPH % 15.6 % (9.0-44.0); LYMPHOCYTE # 1.5 TH/MM3 (1.0-4.8); MEAN CELL VOLUME 89.7 FL (80.0-100.0); MEAN CORPUSCULAR HEMOGLOBIN 30.8 PG (27.0-34.0); MEAN CORPUSCULAR HGB CONC 34.3 % (32.0-36.0); MEAN PLATELET VOLUME 7.6 FL (7.0-11.0); MONO % 7.9 % (0.0-8.0); MONOCYTE # 0.8 TH/MM3 (0-0.9); NEUT % 74.3 % (16.0-70.0); PLATELET COUNT 298 TH/MM3 (150-450); RED BLOOD COUNT 4.23 MIL/MM3 (4.50-5.90); RED CELL DISTRIBUTION WIDTH 14.9 % (11.6-17.2); WHITE BLOOD COUNT 9.9 TH/MM3 (4.0-11.0)
[2017-05-20 23:55] LABS: BICARBONATE 31.1 MEQ/L (21.0-32.0); BLOOD UREA NITROGEN 13 MG/DL (7-18); CALCIUM 9.1 MG/DL (8.5-10.1); CHLORIDE 103 MEQ/L (98-107); CREATININE 1.15 MG/DL (0.60-1.30); GLOMERULAR FILTRATION RATE 61 ML/MIN (>89); GLUCOSE,RANDOM 139 MG/DL (74-106); SODIUM (NA) 139 MEQ/L (136-145)
[2017-05-20 23:59] LABS: TROPONIN I LESS THAN 0.02 NG/ML (0.02-0.05)
[2017-05-21] VITALS (15 sets, daily range): BP systolic 139–211; BP diastolic 70–106; PULSE 72–98; RESP 15–24; TEMP 97.6–98; O2SAT 92–99
[2017-05-21 00:18] LABS: BILIRUBIN, URINE NEG (NEG); BLOOD, URINE NEG (NEG); GLUCOSE,URINE NEG (NEG); HYALINE CAST, URINE 1 /lpf (RARE); KETONE, URINE NEG (NEG); NITRITE,URINE NEG (NEG); PH, URINE 6.5 (5.0-8.5); URINE COLOR LIGHT-YELLOW (YELLW/STRAW); URINE LEUKOCYTE ESTERASE NEG (NEG)
[2017-05-21] MEDS ORDERED: NITROGLYCERIN 2% OINT 1 GM PACKET TOPICAL ONE (01:00)
[2017-05-21] MEDS ORDERED: ENALAPRILAT 1.25 MG/ML VIAL IV PUSH ONE (01:00)
[2017-05-21] MEDS ORDERED: IOHEXOL 350 MG/ML 10 ML VIAL (for RAD DIAG) IVCONTRAST ONE (01:53)
--- NOTE | 2017-05-21 02:22 | RADRPT ---
EXAM DATE/TIME: 05/21/2017 01:38 [facility] COMPARISON: No previous studies available for comparison. INDICATIONS : Chest pain and shortness of breath. IV CONTRAST: 74 cc Omnipaque 350 (iohexol) IV RADIATION DOSE: 10.68 CTDIvol (mGy) MEDICAL HISTORY : Cardiovascular disease. Myocardial infarction. Chronic obstructive pulmonary disease.Hypertension. Di abetes. SURGICAL HISTORY : Cardiac catherization. Thoracentesis. ENCOUNTER: Initial ACUITY: 1 day PAIN SCALE: 5/10 LOCATION: chest TECHNIQUE: Volumetric scanning of the chest was performed using a pulmonary embolism protocol MIP images were re constructed. Using automated exposure control and adjustment of the mA and/or kV according to patien t size, radiation dose was kept as low as reasonably achievable to obtain optimal diagnostic quality images. DICOM format image data is available electronically for review and comparison. Follow-up recommendations for detected pulmonary nodules are based at a minimum on nodule size and pa tient risk factors according to Fleischner Society Guidelines. FINDINGS: No filling defects identified to suggest pulmonary embolic disease. There are moderate-sized bilateral pleural effusions at least partially loculated bilaterally. There is compressive atelectasis in both lungs. There is no hilar, mediastinal or axillary adenopathy. No pericardial effusion. No acute findings in the upper abdomen. Previous fixation of lower thoracic and lumbar spine. CONCLUSION: 1. Negative for pulmonary embolic disease. 2. Moderate bilateral pleural effusions with compressive atelectasis. 3. Severe coronary artery calcifications. Asa Douglass MD on May 21, 2017 at 2:13 Board Certified Radiologist. This report was verified electronically.
[2017-05-21] MEDS ORDERED: ONDANSETRON HCL 4 MG/2 ML VIAL IVP PRN (03:30)
[2017-05-21] MEDS ORDERED: BISACODYL 10 MG SUPP RECTAL PRN (03:30)
[2017-05-21] MEDS ORDERED: ACETAMINOPHEN 325 MG TAB PO PRN (03:30)
[2017-05-21] MEDS ORDERED: MORPHINE SULFATE 2 MG/ML INJ IV PUSH PRN (03:30)
[2017-05-21] MEDS ORDERED: ACETAMINOPHEN/HYDROcodone 325 MG/5 MG TAB PO PRN (03:30)
[2017-05-21] MEDS ORDERED: LACTULOSE SYRUP 20 GM/30 ML CUP PO PRN (03:30)
[2017-05-21] MEDS ORDERED: SODIUM CHLORIDE 0.9% FLUSH 10 ML FLUSH IV FLUSH PRN (03:30)
[2017-05-21] MEDS ORDERED: MAGNESIUM HYDROXIDE SUSP 30 ML CUP PO PRN (03:30)
[2017-05-21] MEDS ORDERED: NITROGLYCERIN 2% OINT 1 GM PACKET TOPICAL PRN (03:30)
[2017-05-21] MEDS ORDERED: SENNOSIDES 8.6 MG TAB PO PRN (03:30)
[2017-05-21] MEDS ORDERED: GLUCAGON 1 MG/ML VIAL OTHER PRN (03:45)
[2017-05-21] MEDS ORDERED: DEXTROSE 50% IN WATER 50 ML VIAL(D50) IV PUSH PRN (03:45)
[2017-05-21] MEDS ORDERED: RESP: ALBUTEROL 2.5 MG/IPRATROPIUM 0.5 MG NEB (PRN) NEB (03:45)
--- NOTE | 2017-05-21 03:59 | HHI.HP ---
HPI Service [facility] Primary Care Physician Abhay Woods MD Admission Diagnosis dyspnea/chf; symptomatic pleural effusions; hypoxemia; htn Diagnoses: (1) CHF (congestive heart failure) Diagnosis: Principal (2) Chest pain Diagnosis: Principal (3) Hypoxia Diagnosis: Principal (4) HTN (hypertension) Diagnosis: Principal (5) A-fib Diagnosis: Principal (6) DM (diabetes mellitus) Diagnosis: Principal Travel History International Travel<30 Days: No Contact w/Intl Traveler <30 Da: No Traveled to Known Affected Are: No History of Present Illness This is an 82-year-old male with PMH of HTN, A. fib on Eliquis, CHF (Echo w/ EF 50-55%), Recurrent Pleural Effusion and DM who was brought to the ER by EMS secondary to complaints of chest pain and SOB. Per pt he was watching TV when he had sudden onset of chest pain. Pain is substernal, severe, 10/10, constant, non-radiating, associated w/ SOB. Denies fever, chills or cough. On arrival, pt noted to be in severe respiratory distress w/ O2 77% on RA. BP 229/ 118, HR 105, Afebrile. CBC essentially unremarkable. Chemistry at baseline. Troponin negative. D-dimer 1.96. UA negative. CXR with cardiomegaly and bilateral effusions characteristic of congestive heart failure. CTA Pulm negative for PE, moderate bilateral pleural effusions w/ atelectasis. S/p Vasotec, Lasix and NTG in ER w/ improvement. Follows w/ Dr. Cohen as outpatient, s/p multiple thoracentesis in the past for recurrent pleural effusions. Also follows w/ Dr. Harris. Review of Systems Except as stated in HPI: all other systems reviewed are Neg ROS: 14 point review of systems otherwise negative. Past Family Social History Past Medical History PMH: HTN, A. fib on Eliquis, CHF (Echo 05/03/16 w/ EF 50-55%), Recurrent Pleural Effusion and DM Past Surgical History PAST SURGICAL HISTORY: Cataract Surgery, Tracheostomy Allergies: Coded Allergies: No Known Allergies (Verified Adverse Reaction, Unknown, 05/20/17) Family History PAST FAMILY HISTORY: Reviewed. No h/o DM or CAD Social History PAST SOCIAL HISTORY: Occasional alcohol. Negative for tobacco or drugs. Physical Exam Vital Signs Vital Signs Date Time Temp Pulse Resp B/P (MAP) Pulse Ox O2 Delivery O2 Flow Rate FiO2 05/21/17 02:30 98 24 157/77 (103) 93 Nasal Cannula 3.00 05/21/17 01:30 88 24 169/87 (114) 95 Nasal Cannula 3.00 05/21/17 01:00 73 24 178/86 (116) 95 Nasal Cannula 3.00 05/21/17 00:30 89 24 211/106 (141) 95 Nasal Cannula 05/21/17 00:00 77 24 196/95 (128) 96 Nasal Cannula 3.00 05/20/17 22:56 97.9 105 26 229/118 (155) 96 Nasal Cannula 3.00 219/127 (157) 05/20/17 22:50 97 Nasal Cannula 3.00 05/20/17 22:45 77 Room Air Physical Exam PE: GENERAL: Very pleasant elderly white male in no acute distress. Resting comfortably at this time. HEENT: PERRLA, EOMI. No scleral icterus or conjunctival pallor. No lid lag or facial droop. CARDIOVASCULAR: Regular rate and rhythm. No obvious murmurs to auscultation. No chest tenderness to palpation. RESPIRATORY: No obvious rhonchi or wheezing. Clear to auscultation. Breath sounds equal bilaterally. GASTROINTESTINAL: Abdomen soft, non-tender, nondistended. BS normal. MUSCULOSKELETAL: Extremities without clubbing, cyanosis, or edema. No obvious deformities. NEUROLOGICAL: Awake, alert and oriented x4. No focal neurologic deficits. Moving both upper and lower extremities spontaneously. Laboratory Laboratory Tests Test 05/20/17 22:56 05/20/17 23:20 White Blood Count 9.9 Red Blood Count 4.23 Hemoglobin 13.0 Hematocrit 38.0 Mean Corpuscular Volume 89.7 Mean Corpuscular Hemoglobin 30.8 Mean Corpuscular Hemoglobin Concent 34.3 Red Cell Distribution Width 14.9 Platelet Count 298 Mean Platelet Volume 7.6 Neutrophils (%) (Auto) 74.3 Lymphocytes (%) (Auto) 15.6 Monocytes (%) (Auto) 7.9 Eosinophils (%) (Auto) 1.6 Basophils (%) (Auto) 0.6 Neutrophils # (Auto) 7.4 Lymphocytes # (Auto) 1.5 Monocytes # (Auto) 0.8 Eosinophils # (Auto) 0.2 Basophils # (Auto) 0.1 CBC Comment DIFF FINAL Differential Comment D-Dimer Quantitative (PE/DVT) 1.96 Blood Urea Nitrogen 13 Creatinine 1.15 Random Glucose 139 Calcium Level 9.1 Sodium Level 139 Potassium Level 3.8 Chloride Level 103 Carbon Dioxide Level 31.1 Anion Gap 5 Estimat Glomerular Filtration Rate 61 Total Creatine Kinase 78 Troponin I LESS THAN 0.02 B-Type Natriuretic Peptide 287 Urine Color LIGHT-YELLOW Urine Turbidity CLEAR Urine pH 6.5 Urine Specific [place] 1.011 Urine Protein 100 Urine Glucose (UA) NEG Urine Ketones NEG Urine Occult Blood NEG Urine Nitrite NEG Urine Bilirubin NEG Urine Urobilinogen LESS THAN 2.0 Urine Leukocyte Esterase NEG Urine RBC 1 Urine WBC LESS THAN 1 Urine Hyaline Casts 1 Microscopic Urinalysis Comment CULT NOT INDICATED Result Diagram: 05/20/17225505/20/172255 Caprini VTE Risk Assessment Caprini VTE Risk Assessment: No/Low Risk (score <= 1) Caprini Risk Assessment Model Point Value = 1 Point Value = 2 Point Value = 3 Point Value = 5 Age 41-60 Minor surgery BMI > 25 kg/m2 Swollen legs Varicose veins or History of unexplained or recurrent spontaneous Oral contraceptives or hormone replacement Sepsis (< 1 month) Serious lung disease, including pneumonia (< 1 month) Abnormal pulmonary function Acute myocardial infarction Congestive heart failure (< 1 month) History of inflammatory bowel disease Medical patient at bed rest Age 61-74 Arthroscopic surgery Major open surgery (> 45 min) Laparoscopic surgery (> 45 min) Malignancy Confined to bed (> 72 hours) Immobilizing plaster cast Central venous access Age >= 75 History of VTE Family history of VTE Factor V Leiden Prothrombin [id number] Lupus anticoagulant Anticardiolipin antibodies Elevated serum homocysteine Heparin-induced thrombocytopenia Other congenital or acquired thrombophilia Stroke (< 1 month) Elective arthroplasty Hip, pelvis, or leg fracture Acute spinal cord injury (< 1 month) Prophylaxis Regimen Total Risk Factor Score Risk Level Prophylaxis Regimen 0-1 Low Early ambulation 2 Moderate Order ONE of the following: *Sequential Compression Device (SCD) *Heparin 5000 units SQ BID 3-4 Higher Order ONE of the following medications: *Heparin 5000 units SQ TID *Enoxaparin/Lovenox 40 mg SQ daily (WT < 150 kg, CrCl > 30 mL/min) *Enoxaparin/Lovenox 30 mg SQ daily (WT < 150 kg, CrCl > 10-29 mL/min) *Enoxaparin/Lovenox 30 mg SQ BID (WT < 150 kg, CrCl > 30 mL/min) AND/OR *Sequential Compression Device (SCD) 5 or more Highest Order ONE of the following medications: *Heparin 5000 units SQ TID (Preferred with Epidurals) *Enoxaparin/Lovenox 40 mg SQ daily (WT < 150 kg, CrCl > 30 mL/min) *Enoxaparin/Lovenox 30 mg SQ daily (WT < 150 kg, CrCl > 10-29 mL/min) *Enoxaparin/Lovenox 30 mg SQ BID (WT < 150 kg, CrCl > 30 mL/min) AND *Sequential Compression Device (SCD) Assessment and Plan Problem List: (1) Chest pain ICD Code: R07.9 - Chest pain, unspecified (2) CHF (congestive heart failure) ICD Code: I50.9 - Heart failure, unspecified Status: Acute (3) Hypoxia ICD Code: R09.02 - Hypoxemia Status: Acute (4) HTN (hypertension) ICD Code: I10 - HTN (hypertension) Status: Chronic (5) A-fib ICD Code: I48.91 - A-fib Status: Chronic (6) DM (diabetes mellitus) ICD Code: E11.9 - DM (diabetes mellitus) Status: Chronic Assessment and Plan A/P: 1. Chest Pain: acute onset of substernal chest pain, r/o ACS. Initial trop negative, EKG w/ no acute ischemia. Admit to [facility], place on telemetry, check serial cardiac enzymes for trend. Resume home Metoprolol, Statin, on Eliquis. Follows w/ Dr. Harris as outpatient, will consult for further evaluation. 2. CHF: Acute on Chronic. Diastolic. BNP 287, CXR w/ bilateral pleural effusions consistent w/ CHF, CTA Pulm w/ moderate bilateral pleural effusions, images reviewed by me. S/p Lasix IV in ER, continue w/ Lasix 40mg IV bid, monitor I/O. H/o recurrent pleural effusions requiring thoracentesis, following w/ Dr. Cohen, will consult for further evaluation. 3. HTN: Uncontrolled. BP 229/118, HR 105 on arrival, s/p Vasotec, Lasix and NTG w/ some improvement. Monitor BP closely, resume home medications, antihypertensives for BP >180 4. Hypoxia: O2 sat 77% on RA upon arrival, currently O2 sat 93% on 3L NC, Monitor O2, DuoNeb prn, resume home Symbicort. 5. DM: Sliding scale w/ Accu-Cheks. Hold Metformin for possible intervention. 6. A-fib: Chronic. Resume home Cardizem, continue telemetry. 7. DVT Prophylaxis: On Eliquis 8. Social work for d/c planning as needed. 9. Case discussed w/ ER physician at length, labs/records/imaging reviewed by me. Physician Certification 2 Midnight Certification Type: Admission for Inpatient Services Order for Inpatient Services The services are ordered in accordance with Medicare regulations or non- Medicare payer requirements, as applicable. In the case of services not specified as inpatient-only, they are appropriately provided as inpatient services in accordance with the 2-midnight benchmark. Estimated LOS (days): 2 days is the estimated time the patient will need to remain in the hospital, assuming treatment plan goals are met and no additional complications. Post-Hospital Plan: Not yet determined Amada Crump MD May 21, 2017 03:59
[2017-05-21] MEDS: INSULIN ASPART SUPPLEMENTAL SCALE SQ SCH ×4 (08:00→20:02)
[2017-05-21 08:50] LABS: AUTOMATED NEUTROPHIL # 6.3 TH/MM3 (1.8-7.7); BASOPHIL % 0.6 % (0.0-2.0); EOSINOPHIL % 0.5 % (0.0-4.0); HEMATOCRIT 36.1 % (39.0-51.0); HEMOGLOBIN 12.3 GM/DL (13.0-17.0); LYMPH % 13.1 % (9.0-44.0); LYMPHOCYTE # 1.1 TH/MM3 (1.0-4.8); MEAN CELL VOLUME 89.8 FL (80.0-100.0); MEAN CORPUSCULAR HEMOGLOBIN 30.7 PG (27.0-34.0); MEAN CORPUSCULAR HGB CONC 34.2 % (32.0-36.0); MEAN PLATELET VOLUME 7.4 FL (7.0-11.0); MONO % 8.1 % (0.0-8.0); MONOCYTE # 0.7 TH/MM3 (0-0.9); NEUT % 77.7 % (16.0-70.0); PLATELET COUNT 283 TH/MM3 (150-450); RED BLOOD COUNT 4.02 MIL/MM3 (4.50-5.90); RED CELL DISTRIBUTION WIDTH 14.9 % (11.6-17.2); WHITE BLOOD COUNT 8.1 TH/MM3 (4.0-11.0)
[2017-05-21 08:58] LABS: INTERNATIONAL NORMALIZED RATIO 1.2 RATIO; PROTHROMBIN TIME - PATIENT 11.7 SEC (9.8-11.6)
[2017-05-21] MEDS: BUDESONIDE-FORMOTEROL 160/4.5 MCG INHALER INH SCH ×2 (09:00→21:00)
[2017-05-21] MEDS ORDERED: HEPARIN SODIUM - SQ 10,000 UNITS/ML VIAL SQ SCH (09:00)
[2017-05-21] MEDS ORDERED: APIXABAN 5 MG TABLET PO SCH (09:00)
[2017-05-21] MEDS ORDERED: METOPROLOL TARTRATE 50 MG TAB PO SCH (09:00)
[2017-05-21] MEDS: FUROSEMIDE 40 MG/4 ML VIAL IV PUSH SCH ×2 (09:08→17:41)
[2017-05-21] MEDS: DILTIAZEM-CD 180 MG CAP ER PO SCH ×2 (09:08→19:55)
[2017-05-21] MEDS: SODIUM CHLORIDE 0.9% FLUSH 10 ML FLUSH IV FLUSH SCH ×2 (09:09→19:55)
[2017-05-21] MEDS: ASPIRIN EC 81 MG TABEC PO SCH (09:09)
[2017-05-21] MEDS: DOCUSATE SODIUM 50 MG/SENNA 8.6 MG TAB PO SCH ×3 (09:09→21:00)
[2017-05-21 09:23] LABS: ALBUMIN 3.4 GM/DL (3.4-5.0); AST (GOT) 18 U/L (15-37); BICARBONATE 35.6 MEQ/L (21.0-32.0); BLOOD UREA NITROGEN 12 MG/DL (7-18); CALCIUM 8.8 MG/DL (8.5-10.1); CHLORIDE 101 MEQ/L (98-107); CREATININE 0.89 MG/DL (0.60-1.30); GLOMERULAR FILTRATION RATE 82 ML/MIN (>89); GLUCOSE,RANDOM 100 MG/DL (74-106); SODIUM (NA) 141 MEQ/L (136-145)
[2017-05-21 09:29] LABS: ALKALINE PHOSPHATASE 80 U/L (45-117); ALT (GPT) 20 U/L (12-78); TOTAL BILIRUBIN ADULT 0.6 MG/DL (0.2-1.0); TOTAL PROTEIN 7.4 GM/DL (6.4-8.2); TROPONIN I 0.02 NG/ML (0.02-0.05)
[2017-05-21] MEDS ORDERED: POTASSIUM CHLORIDE 20 MEQ CONTROLLED RELEASE TAB PO ONE ×2 (12:30→15:00)
--- NOTE | 2017-05-21 13:24 | MB ---
cc: GRACE AVILA M.D., HUMAYUN A. M.D. BILLMEIER, DAVID W. M.D. DATE OF CONSULTATION: 05/21/2017 REASON FOR CONSULTATION: HISTORY OF PRESENT ILLNESS: Mr. Rm is a pleasant 82-year-old gentleman with past history of coronary artery disease, occluded RCA with [id number] collaterals, history of hypertension, chronic atrial fibrillation and history of "pauses," status post loop recorder insertion, history of diabetes mellitus, history of recurrent pleural effusion and congestive heart failure. The patient comes in with chest discomfort, bloated sensation, "pressure" with associated shortness of breath but no diaphoresis or nausea. He had palpitations with that but it was non-radiating. He came to me and his blood pressure was quite elevated at 229/118 mmHg. He has been having chronic dyspnea on exertion walking a block with his walker or less. She has three to four pillow orthopnea. He sleeps in a hospital bed and the head of bed has been elevated. This has been going on for the past few days. He denies PND. He has no leg swellings lately. Denies claudication. ALLERGIES NO KNOWN DRUG ALLERGIES. PAST MEDICAL AND SURGICAL HISTORY Includes as mentioned above: 1. History of COPD. 2. Echocardiogram a year ago showed an EF of 50 to 55% with mild tricuspid regurgitation and PA systolic pressure around 42 mmHg. 3. Status post cataract surgery bilaterally. 4. Tracheostomy in the past when he had a fall from a tree and spent about three weeks in the hospital according to him. FAMILY HISTORY: Positive for coronary artery disease (mother and brother). Cancer in his sister. Questionable history of hypertension in the family. No history of diabetes. SOCIAL HISTORY He used to smoke until age 46 and he smoked cigars on and off and a few cigarettes. He stopped completely about five years ago. History of COPD, followed by Dr. Cohen. Denies recreational drug use. He drinks one cocktail, rum and coke, about four times a week. Denies recreational drug use. He is and lives with his . OCCUPATIONAL HISTORY: He used to work in construction. REVIEW OF SYSTEMS 12-point system review was unremarkable except what is mentioned in the history of present illness. Denies fever, has a recurrent cough. MEDICATIONS Medications at home includes the followin. Eliquis 5 milligrams p.o. b.i.d. 2. Atorvastatin 20 milligrams p.o. q.h.s. 3. Metoprolol tartrate 50 mg daily. 4. Diltiazem 180 milligrams p.o. b.i.d. 5. Rocephin 100 milligrams p.o. qd. 6. Meloxicam 7.5 milligrams daily. 7. Gabapentin 300 milligrams p.o. q hs. 8. Potassium chloride 20 milliequivalents daily. 9. Lasix 40 milligrams daily. 10. Symbicort inhaler. 11. Omeprazole 20 milligrams p.o. qd. 12. Metformin 850 milligrams p.o. b.i.d. 13. Vitamin B supplements. 14. Multivitamins. PHYSICAL EXAMINATION: The patient is an 82-year-old gentleman lying in bed in no apparent distress, alert and x3 answering questions appropriately. Vitals: Blood pressure is 152/96, it was as high as 219/127 mmHg upon presentation. He was hypoxic at 77 on room air when he presented. His O2 sat now is 98% on five liters by nasal cannula. Respirations 80 per minute, afebrile. HEENT: The head is normocephalic. Pupils equal and reactive, throat is within normal limits. Neck: Supple. No carotid bruit or thyromegaly. Borderline jugular venous distension noted at 45 degrees angles. Lungs: Diminished air entry at the right lower third and the left base with few rhonchi and crepitations. Overall diminished air entry in general. Cardiovascular: S1-S2 with variable intensity with an S4 gallop. No rubs, no murmurs. Abdomen: Exam is lax, nontender. Normoactive bowel sounds. No organomegaly or masses felt. Extremities: No clubbing, cyanosis or edema. Pulses 2+ bilaterally to the femorals. Dorsalis pedis on the left is 1+. The right is barely felt. Neurologic: Grossly intact with no focal deficits. Rectal: Exam deferred. EKG: Atrial fibrillation with nonspecific atypical conduction defect, cannot rule out old inferior infarction. One PVC versus aberrant conducted beat and poor R-wave progression. LABORATORY DATA: Laboratory shows a white count of 8.1, hemoglobin 12.3, platelet 283, BUN of 12, creatinine 0.89, sodium 141, potassium 3.2. BNP was 287 shows mild elevation, transaminase within normal limits. Chest x-ray shows pleural effusions bilaterally with pulmonary edema. Chest CT angiogram was negative for PE, and moderate bilateral pleural effusion with compressive atelectasis and "severe coronary artery calcifications." Coags shows an INR 1.2. D-Dimer was 1.96. He had a CT angiogram, however, he is on Eliquis. ASSESSMENT AND RECOMMENDATION: 1. Acute on chronic probably diastolic heart failure secondary to possible hypertensive crisis. His Troponin-I is within normal limits so is his CPK. BMP shows mild elevation at 287. Would continue cautiously Lasix, however, watch for rising BUN and creatinine because he just had a CT angiogram with contrast used. He is back on the [facility]. Metoprolol will be switched to Carvedilol for blocking activity and have better blood pressure control. Continue on the nitro paste for now. It is essential that we keep tight control of his blood pressure. He has not had an echocardiogram since April of last year and we will put him for one. 2. CAD/chest discomfort. Chest discomfort has some typical and some atypical components. No acute dynamic ST changes. Troponins are within normal limits. Apparently he had a stress test a month ago with Dr. Harris. I am not sure about the results. His CT angiogram showing significant coronary artery calcification but this does not necessarily reflect tight disease. I will leave further evaluation of ischemia up to Dr. Harris or the structural shop helper covering him tomorrow. He has known coronary artery disease and progressive CAD will need to be evaluated because of his presentation. Also renal artery stenosis will need to be checked because of his recurrent pulmonary edema presentation as well as hypertension difficult to control. He has a history of snoring, daytime napping. Will discuss obstructive sleep apnea and I think this should be checked as an outpatient. 3. Chronic atrial fibrillation. 4. History of "pauses" status post loop recorder. 5. He appears to be controlled. Will switch to metoprolol to Coreg as mentioned above for possibly better control of blood pressure. Will hold off the Eliquis and can start IV heparin from tomorrow in case more invasive workup is needed. 6. Hyperlipidemia. Continue statin. Further recommendations will follow through Dr. Harris or covering structural shop helper tomorrow. Thank you for the consultation. MD MARY KATE Castaneda/WAI /11:46 AM /12:52 PM
--- NOTE | 2017-05-21 16:47 | MB ---
cc: TIN COHEN R. STEVEN M.D. DATE OF CONSULTATION 05/21/2017 HISTORY OF THE PRESENT ILLNESS Mr. Rm is an 81-year-old white male with a history of congestive heart failure, chronic atrial fibrillation, diabetes and recurrent pleural effusions. He has had these effusions drained several times by Dr. Cohen and apparently no infection or malignancy has ever been identified. It is thought be to his underlying heart disease. He was last admitted here in June of last year but presented again to the emergency room yesterday with chest discomfort along with shortness of breath. He had a CT angiogram which revealed no thromboembolic disease but moderate effusions right greater than left. He has been on Eliquis for his underlying atrial fibrillation. The patient has no significant primary pulmonary disease and never smoked. He has had no cough or purulent sputum. The chest pain has been more of a discomfort across the anterior chest with tightness. He has had no fever. No preceding symptoms to suggest infection. PAST MEDICAL HISTORY Other than that noted above, he has had: 1. Lumbar disk surgery. 2. And appendectomy. ALLERGIES None. MEDICATIONS 1. Reviewed in the EMR. His Eliquis has been continued in light of the underlying atrial fibrillation. 2. He is also on an 81 mg aspirin. 3. He has been started on IV Lasix. PHYSICAL EXAMINATION VITAL SIGNS: 97 degrees, 150/90, pulse 70, respiratory rate 18, sat 98%. NECK: The neck veins are mildly distended. CHEST: Somewhat diminished at the bases but otherwise clear. No wheezes or rales. Soft systolic murmur. No audible S3. EXTREMITIES: No pitting edema in the legs or calf tenderness. No cyanosis. DISCUSSION Mr. Rm presents back again with recurrent effusions last drained in June. He is currently on Eliquis. He is being diuresed. If the fluid responds to diuresis he may not need to have the fluid drained again. At present his pulmonary status is stable. I will notify Dr. Cohen tomorrow when he returns that the patient has been re-admitted so that he will follow him up. Further diagnostic and/or therapeutic intervention will depend on his ongoing clinical course. R. MD SHIRA Morris/KK /3:20 PM /4:34 PM
--- NOTE | 2017-05-21 17:04 | EKG ---
Date Performed: 05/20/2017 Time Performed: 22:52:27 PTAGE: 82 years EKG: ATRIAL FIBRILLATION WITH RAPID VENTRICULAR RESPONSE WITH ABERRANT CONDUCTION OR VENTRICULAR PREMATURE COMPLEXES MODERATE INTRAVENTRICULAR CONDUCTION DELAY MODERATE ST DEPRESSION ABNORMAL ECG PREVIOUS TRACING : 07/02/2016 12.09 Compared to prior tracing, rate has increased DOCTOR: Manuel Castellano Interpretating Date/Time 05/22/2017 07:27:44
[2017-05-21] MEDS: ATORVASTATIN 20 MG TAB PO SCH (19:55)
[2017-05-21] MEDS: POTASSIUM CHLORIDE 20 MEQ CONTROLLED RELEASE TAB PO SCH (19:55)
[2017-05-21] MEDS: CARVEDILOL 6.25 MG TAB PO SCH (19:55)
[2017-05-21] MEDS: GABAPENTIN 300 MG CAP PO SCH (19:56)
[2017-05-22] VITALS (21 sets, daily range): BP systolic 134–172; BP diastolic 73–92; PULSE 67–104; RESP 16–19; TEMP 97.5–97.9; O2SAT 93–98
[2017-05-22 05:28] LABS: BICARBONATE 33.8 MEQ/L (21.0-32.0); CALCIUM 8.9 MG/DL (8.5-10.1); CREATININE 0.83 MG/DL (0.60-1.30); MAGNESIUM 1.8 MG/DL (1.5-2.5)
[2017-05-22 05:29] LABS: PHOSPHORUS 3.5 MG/DL (2.5-4.9)
[2017-05-22 05:39] LABS: FREE T4 0.91 NG/DL (0.76-1.46)
--- NOTE | 2017-05-22 07:37 | HHI.PR ---
Subjective Remarks No chest pain overnight. Denies shortness of breath or lightheadedness. No nausea vomiting diarrhea or constipation. Lower extremity is improving. He is however requiring oxygen this time. He does not have oxygen at home. at bedside also, all questions answered to best of my ability. Objective Vitals Vital Signs Date Time Temp Pulse Resp B/P (MAP) Pulse Ox O2 Delivery O2 Flow Rate FiO2 05/22/17 03:00 97.9 80 18 134/73 (93) 97 05/22/17 03:00 80 05/21/17 23:00 98.0 85 15 162/94 (116) 97 05/21/17 23:00 80 05/21/17 19:00 98 Nasal Cannula 6.00 05/21/17 19:00 97.9 79 18 143/70 (94) 99 05/21/17 19:00 74 05/21/17 15:09 97.7 72 18 150/79 (102) 98 05/21/17 15:08 72 05/21/17 11:09 97.7 75 18 152/96 (114) 98 05/21/17 11:08 75 I/O 05/21/17 05/21/17 05/21/17 05/22/17 05/22/17 05/22/17 07:00 15:00 23:00 07:00 15:00 23:00 Intake Total 120 ml 1200 ml Output Total 350 ml 1420 ml Balance -230 ml -220 ml Intake Oral 120 ml 1200 ml Output Urine Total 350 ml 1420 ml Stool Total 0 ml # Voids 1 4 # Bowel Movements 1 Result Diagram: 05/21/17 0754 05/22/17 [address] Angiography 05/21/17 0000 Signed Impressions: Service Date/Time: Sunday, May 21, 2017 01:38 - CONCLUSION: 1. Negative for pulmonary embolic disease. 2. Moderate bilateral pleural effusions with compressive atelectasis. 3. Severe coronary artery calcifications. Asa Douglass MD Chest X-Ray 05/20/17 2246 Signed Impressions: Service Date/Time: Saturday, May 20, 2017 23:05 - CONCLUSION: 1. Cardiomegaly with bilateral effusions and pulmonary edema pattern most characteristic of congestive heart failure. Asa Douglass MD Objective Remarks GENERAL: Very pleasant elderly white male in no acute distress. Resting comfortably at this time. HEENT: PERRLA, EOMI. No scleral icterus or conjunctival pallor. No lid lag or facial droop. CARDIOVASCULAR: Regular rate and rhythm. No obvious murmurs to auscultation. No chest tenderness to palpation. RESPIRATORY: No obvious rhonchi or wheezing. Decreased breath sounds, bibasilar crackles worse on the right side. GASTROINTESTINAL: Abdomen soft, non-tender, nondistended. BS normal. MUSCULOSKELETAL: Extremities without clubbing, cyanosis, or edema. No obvious deformities. NEUROLOGICAL: Awake, alert and oriented x4. No focal neurologic deficits. Moving both upper and lower extremities spontaneously. A/P Problem List: (1) Chest pain ICD Code: R07.9 - Chest pain, unspecified (2) CHF (congestive heart failure) ICD Code: I50.9 - Heart failure, unspecified Status: Acute (3) Hypoxia ICD Code: R09.02 - Hypoxemia Status: Acute (4) HTN (hypertension) ICD Code: I10 - HTN (hypertension) Status: Chronic (5) A-fib ICD Code: I48.91 - A-fib Status: Chronic (6) DM (diabetes mellitus) ICD Code: E11.9 - DM (diabetes mellitus) Status: Chronic Assessment and Plan Chest Pain: acute onset of substernal chest pain, r/o ACS. Initial trop negative, EKG w/ no acute ischemia. On telemetry. Continue home Metoprolol, Statin, on Eliquis. Follows w/ Dr. Harris as outpatient, will consult for further evaluation. CTA chest with calcifies coronaries. CHF: Acute on Chronic. Diastolic. BNP 287 on admission CXR w/ bilateral pleural effusions consistent w/ CHF, CTA Pulm w/ moderate bilateral pleural effusions, images reviewed by me. S/p Lasix IV in ER, continue w/ Lasix 40mg IV bid, monitor I/O. H/o recurrent pleural effusions requiring thoracentesis, following w/ Dr. Cohen pulm, will consult for further evaluation. CTA reviewed no PE. HTN: Uncontrolled. BP 229/118, HR 105 on arrival, s/p Vasotec, Lasix and NTG w / some improvement. Monitor BP closely, resume home medications, antihypertensives for BP >180 Hypoxia: O2 sat 77% on RA upon arrival, currently O2 sat 93% on 3L NC, Monitor O2, DuoNeb prn, resume home Symbicort. Pleural effusions. Responding fairly well to Lasix. Hold on thoracentesis at this time. Neurology also following DM2: Sliding scale w/ Accu-Cheks. Hold Metformin for possible intervention. A-fib: Chronic. Resume home Cardizem, continue telemetry. DVT Prophylaxis: On Eliquis CM consulted for DC plan. Discussed with the patient, nurse, family at bedside - Tessa Macias MD May 22, 2017 07:37
[2017-05-22] MEDS: INSULIN ASPART SUPPLEMENTAL SCALE SQ SCH ×4 (08:00→21:00)
[2017-05-22] MEDS: DILTIAZEM-CD 180 MG CAP ER PO SCH ×2 (08:27→20:39)
[2017-05-22] MEDS: CARVEDILOL 6.25 MG TAB PO SCH ×2 (08:27→20:38)
[2017-05-22] MEDS: ASPIRIN EC 81 MG TABEC PO SCH (08:27)
[2017-05-22] MEDS: DOCUSATE SODIUM 50 MG/SENNA 8.6 MG TAB PO SCH ×2 (08:27→20:39)
[2017-05-22] MEDS: FUROSEMIDE 40 MG/4 ML VIAL IV PUSH SCH ×2 (08:27→17:34)
[2017-05-22] MEDS: SODIUM CHLORIDE 0.9% FLUSH 10 ML FLUSH IV FLUSH SCH ×2 (08:27→20:40)
[2017-05-22] MEDS: POTASSIUM CHLORIDE 20 MEQ CONTROLLED RELEASE TAB PO SCH ×2 (08:28→20:39)
[2017-05-22] MEDS: BUDESONIDE-FORMOTEROL 160/4.5 MCG INHALER INH SCH ×2 (08:28→20:40)
[2017-05-22] MEDS: LOSARTAN 50 MG TAB PO SCH (17:34)
--- NOTE | 2017-05-22 18:05 | PD.CARD.PN ---
Subjective Subjective Remarks No CP or excessive SOB Objective Medications Current Medications Medications (Trade) Dose Ordered Sig/Chelsi Route Start Time Stop Time Status Last Admin (NS Flush) 2 ml UNSCH PRN IV FLUSH 05/21/17 03:30 05/22/17 17:35 (NS Flush) 2 ml BID IV FLUSH 05/21/17 09:00 05/22/17 08:27 (Zofran Inj) 4 mg Q6H PRN IVP 05/21/17 03:30 (Tylenol) 650 mg Q6H PRN PO 05/21/17 03:30 ([place] 5-325 Mg) 1 tab Q4H PRN PO 05/21/17 03:30 (Morphine Inj) 2 mg Q3H PRN IV PUSH 05/21/17 03:30 (Demetria-Colace) 1 tab BID PO 05/21/17 09:00 05/22/17 08:27 (Milk Of Magnesia Liq) 30 ml Q12H PRN PO 05/21/17 03:30 (Senokot) 17.2 mg Q12H PRN PO 05/21/17 03:30 (Dulcolax Supp) 10 mg DAILY PRN RECTAL 05/21/17 03:30 (Lactulose Liq) 30 ml DAILY PRN PO 05/21/17 03:30 (Lasix Inj) 40 mg BID@ IV PUSH 05/21/17 09:00 05/22/17 17:34 (Ecotrin Ec) 81 mg DAILY PO 05/21/17 09:00 05/22/17 08:27 (Nitroglycerin 2% Oint) 0.5 inch Q6HR PRN TOPICAL 05/21/17 03:30 (Eliquis) 5 mg BID PO 05/21/17 09:00 Future Hold 05/21/17 09:09 (Lipitor) 20 mg HS PO 05/21/17 21:00 05/21/17 19:55 (Symbicort 160-4.5 Mcg Inh) 1 puff Q12HR INH 05/21/17 09:00 (Neurontin) 300 mg HS PO 05/21/17 21:00 05/21/17 19:56 (Cardizem Cd) 180 mg BID PO 05/21/17 09:00 05/22/17 08:27 (D50w (Vial) Inj) 50 ml UNSCH PRN IV PUSH 05/21/17 03:45 (Glucagon Inj) 1 mg UNSCH PRN OTHER 05/21/17 03:45 (NovoLOG SUPPLEMENTAL SCALE) 1 ACHS SLIDING SCALE SQ 05/21/17 08:00 (Duoneb Neb) 1 ampule Q4HR NEB PRN NEB 05/21/17 03:45 (Coreg) 6.25 mg BID PO 05/21/17 21:00 05/22/17 08:27 (KCl) 20 meq BID PO 05/21/17 21:00 05/22/17 08:28 (Cozaar) 100 mg DAILY PO 05/22/17 16:30 05/22/17 17:34 Vital Signs / I&O Vital Signs Date Time Temp Pulse Resp B/P (MAP) Pulse Ox O2 Delivery O2 Flow Rate FiO2 05/22/17 17:00 73 05/22/17 16:00 74 05/22/17 15:15 97.5 77 19 162/81 (108) 95 05/22/17 15:00 67 05/22/17 14:00 96 05/22/17 13:00 80 05/22/17 12:00 86 05/22/17 11:14 97.6 81 19 151/78 (102) 98 05/22/17 11:00 81 05/22/17 10:00 90 05/22/17 09:07 97.5 97 19 166/92 (116) 96 05/22/17 09:06 96 Nasal Cannula 2.00 05/22/17 09:00 104 05/22/17 07:00 97.7 93 18 159/87 (111) 98 05/22/17 07:00 98 Nasal Cannula 3.00 05/22/17 07:00 86 05/22/17 03:00 97.9 80 18 134/73 (93) 97 05/22/17 03:00 80 05/21/17 23:00 98.0 85 15 162/94 (116) 97 05/21/17 23:00 80 05/21/17 19:00 98 Nasal Cannula 6.00 05/21/17 19:00 97.9 79 18 143/70 (94) 99 05/21/17 19:00 74 I/O 05/21/17 05/21/17 05/21/17 05/22/17/12/18 2/12/18 07:00 15:00 23:00 07:00 15:00 23:00 Intake Total 120 ml 1200 ml 480 ml 720 ml Output Total 350 ml 1420 ml 1325 ml Balance -230 ml -220 ml -845 ml 720 ml Intake Oral 120 ml 1200 ml 480 ml 720 ml Output Urine Total 350 ml 1420 ml 1325 ml Stool Total 0 ml # Voids 1 4 3 # Bowel Movements 1 0 Physical Exam GENERAL: In NAD SKIN: Warm and dry. HEAD: Normocephalic. EYES: No scleral icterus. No injection or drainage. NECK: Supple, trachea midline. No JVD or lymphadenopathy. CARDIOVASCULAR: Irregular rate and rhythm without murmurs, gallops, or rubs. RESPIRATORY: Breath sounds equal bilaterally. No accessory muscle use. GASTROINTESTINAL: Abdomen soft, non-tender, nondistended. MUSCULOSKELETAL: No cyanosis, trace edema. Laboratory Laboratory Tests Test 05/22/17 03:58 Blood Urea Nitrogen 15 MG/DL Creatinine 0.83 MG/DL Random Glucose 108 MG/DL Calcium Level 8.9 MG/DL Phosphorus Level 3.5 MG/DL Magnesium Level 1.8 MG/DL Sodium Level 141 MEQ/L Potassium Level 3.4 MEQ/L Chloride Level 101 MEQ/L Carbon Dioxide Level 33.8 MEQ/L Anion Gap 6 MEQ/L Estimat Glomerular Filtration Rate 89 ML/MIN Free Thyroxine 0.91 NG/DL Thyroid Stimulating Hormone 3rd Gen 1.640 uIU/ML Assessment and Plan Problem List: (1) CHF (congestive heart failure) ICD Codes: I50.9 - Heart failure, unspecified Status: Acute (2) CAD (coronary artery disease) ICD Codes: I25.10 - CAD (coronary artery disease) Status: Chronic (3) Chest pain ICD Codes: R07.9 - Chest pain Status: Acute (4) Atrial fibrillation ICD Codes: I48.91 - Atrial fibrillation Status: Chronic (5) HTN (hypertension) ICD Codes: I10 - HTN (hypertension) Status: Chronic (6) Diabetes mellitus ICD Codes: E11.9 - Diabetes mellitus Status: Acute Assessment and Plan Continue monitoring. No recurrent CP. Continue and titrate BP control. Increase activity. Continue aggressive risk factor modification. F/u w Dr. Harris after discharge. Porfirio Fuchs MD May 22, 2017 18:05
[2017-05-22] MEDS: GABAPENTIN 300 MG CAP PO SCH (20:39)
[2017-05-22] MEDS: ATORVASTATIN 20 MG TAB PO SCH (20:39)
[2017-05-22] MEDS: HEPARIN SODIUM - SQ 10,000 UNITS/ML VIAL SQ SCH (20:40)
--- NOTE | 2017-05-22 23:31 | RADRPT ---
EXAM DATE/TIME: 05/22/2017 22:51 [facility] COMPARISON: No previous studies available for comparison. INDICATIONS : Right pleural effusion. MEDICAL HISTORY : Hypercholesterolemia. Hypertension. Myocardial infarction. Afib. Arthritis. Diabetes. Hearing loss. SURGICAL HISTORY : Bilateral cataract removal. Cardiac catheterization. G tube placement and removal. Back surgery. Neck surgery. ENCOUNTER: Subsequent ACUITY: 1 day PAIN SCORE: 3/10 LOCATION: Right chest MEASUREMENTS: SKIN TO PARIETAL PLEURA: 6.2 cm SKIN TO MAX SAFE DEPTH: 2.5 cm ESTIMATED FLUID VOLUME: 347.03 cc FLUID COMPOSITION: simple FINDINGS: Pleural effusion as above. CONCLUSION: No marking was performed. Right-sided pleural effusion. Brian Newell MD on May 22, 2017 at 23:29 Board Certified Radiologist. This report was verified electronically.
[2017-05-23] VITALS (17 sets, daily range): BP systolic 124–144; BP diastolic 70–86; PULSE 66–116; RESP 16–19; TEMP 97.5–97.7; O2SAT 93–96
[2017-05-23] MEDS: INSULIN ASPART SUPPLEMENTAL SCALE SQ SCH ×2 (08:00→12:00)
[2017-05-23] MEDS ORDERED: ECASA81 PO (08:18)
--- NOTE | 2017-05-23 08:18 | HHI.DS ---
Discharge Summary Admission Date May 21, 2017 at 03:15 Discharge Date: May 23, 2017 Admitting Diagnosis dyspnea/chf; symptomatic pleural effusions; hypoxemia; htn (1) Chest pain ICD Code: R07.9 - Chest pain, unspecified (2) CHF (congestive heart failure) ICD Code: I50.9 - Heart failure, unspecified Status: Acute (3) Hypoxia ICD Code: R09.02 - Hypoxemia Status: Acute (4) HTN (hypertension) ICD Code: I10 - HTN (hypertension) Status: Chronic (5) A-fib ICD Code: I48.91 - A-fib Status: Chronic (6) DM (diabetes mellitus) ICD Code: E11.9 - DM (diabetes mellitus) Status: Chronic Procedures none Brief History - From Admission This is an 82-year-old male with PMH of HTN, A. fib on Eliquis, CHF (Echo w/ EF 50-55%), Recurrent Pleural Effusion and DM who was brought to the ER by EMS secondary to complaints of chest pain and SOB. Per pt he was watching TV when he had sudden onset of chest pain. Pain is substernal, severe, 10/10, constant, non-radiating, associated w/ SOB. Denies fever, chills or cough. On arrival, pt noted to be in severe respiratory distress w/ O2 77% on RA. BP 229/ 118, HR 105, Afebrile. CBC essentially unremarkable. Chemistry at baseline. Troponin negative. D-dimer 1.96. UA negative. CXR with cardiomegaly and bilateral effusions characteristic of congestive heart failure. CTA Pulm negative for PE, moderate bilateral pleural effusions w/ atelectasis. S/p Vasotec, Lasix and NTG in ER w/ improvement. Follows w/ Dr. Cohen as outpatient, s/p multiple thoracentesis in the past for recurrent pleural effusions. Also follows w/ Dr. Harris. CBC/BMP: 05/21/17 0754 05/22/17 0358 Significant Findings Laboratory Tests Test 05/20/17 22:56 05/20/17 23:20 2/11/18 07:54 05/21/17 14:49 Red Blood Count 4.23 MIL/MM3 (4.50-5.90) 4.02 MIL/MM3 (4.50-5.90) Hematocrit 38.0 % (39.0-51.0) 36.1 % (39.0-51.0) Neutrophils (%) (Auto) 74.3 % (16.0-70.0) 77.7 % (16.0-70.0) D-Dimer Quantitative (PE/DVT) 1.96 MG/L FEU (0.00-0.50) Random Glucose 139 MG/DL (74-106) Estimat Glomerular Filtration Rate 61 ML/MIN (>89) 82 ML/MIN (>89) Troponin I LESS THAN 0.02 NG/ML B-Type Natriuretic Peptide 287 PG/ML (0-100) Urine Protein 100 mg/dL (NEG-TRACE) Hemoglobin 12.3 GM/DL (13.0-17.0) Monocytes (%) (Auto) 8.1 % (0.0-8.0) Prothrombin Time 11.7 SEC (9.8-11.6) Potassium Level 3.2 MEQ/L (3.5-5.1) Carbon Dioxide Level 35.6 MEQ/L (21.0-32.0) Anion Gap 4 MEQ/L (5-15) Test 05/22/17 03:58 Random Glucose 108 MG/DL (74-106) Potassium Level 3.4 MEQ/L (3.5-5.1) Carbon Dioxide Level 33.8 MEQ/L (21.0-32.0) Imaging Last Impressions Chest Ultrasound 05/22/17 0000 Signed Impressions: Service Date/Time: Monday, May 22, 2017 22:51 - CONCLUSION: No marking was performed. Right-sided pleural effusion. Brian Newell MD CT Angiography 05/21/17 0000 Signed Impressions: Service Date/Time: Sunday, May 21, 2017 01:38 - CONCLUSION: 1. Negative for pulmonary embolic disease. 2. Moderate bilateral pleural effusions with compressive atelectasis. 3. Severe coronary artery calcifications. Asa Douglass MD Chest X-Ray 05/20/17 2246 Signed Impressions: Service Date/Time: Saturday, May 20, 2017 23:05 - CONCLUSION: 1. Cardiomegaly with bilateral effusions and pulmonary edema pattern most characteristic of congestive heart failure. Asa Douglass MD PE at Discharge GENERAL: Very pleasant elderly white male in no acute distress. Resting comfortably at this time. HEENT: PERRLA, EOMI. No scleral icterus or conjunctival pallor. No lid lag or facial droop. CARDIOVASCULAR: Regular rate and rhythm. No obvious murmurs to auscultation. No chest tenderness to palpation. RESPIRATORY: No obvious rhonchi or wheezing. Decreased breath sounds, bibasilar crackles worse on the right side. GASTROINTESTINAL: Abdomen soft, non-tender, nondistended. BS normal. MUSCULOSKELETAL: Extremities without clubbing, cyanosis, or edema. No obvious deformities. NEUROLOGICAL: Awake, alert and oriented x4. No focal neurologic deficits. Moving both upper and lower extremities spontaneously. Pt update on day of discharge The patient is seen in the chair. He is breathing well on room air. No nausea no vomiting no diarrhea or constipation. He had no fever or chills. No chest pain or shortness of breath. No lower extremity edema. Feels good today and he wants to go home. Hospital Course Chest Pain: acute onset of substernal chest pain, r/o ACS. Initial trop negative, EKG w/ no acute ischemia. On telemetry. Continue home Metoprolol, Statin, on Eliquis. Follows w/ Dr. Harris as outpatient, will consult for further evaluation. CTA chest with calcifies coronaries. CHF: Acute on Chronic. Diastolic. BNP 287 on admission CXR w/ bilateral pleural effusions consistent w/ CHF, CTA Pulm w/ moderate bilateral pleural effusions, images reviewed by me. S/p Lasix IV in ER, continue w/ Lasix 40mg IV bid, monitor I/O. H/o recurrent pleural effusions requiring thoracentesis, following w/ Dr. Cohen pulm, will consult for further evaluation. CTA reviewed no PE. HTN: Uncontrolled. BP 229/118, HR 105 on arrival, s/p Vasotec, Lasix and NTG w / some improvement. Monitor BP closely, resume home medications, antihypertensives for BP >180 Hypoxia: Resolved. Bilateral pleural effusions. O2 sat 77% on RA upon arrival, currently O2 satting well on room air Monitor O2 , DuoNeb prn, resume home Symbicort. Pleural effusions. Responding fairly well to Lasix. Hold on thoracentesis at this time. US chest reviewed. Pulmonology also following. Patient can be discharged on Lasix 40 mg twice daily by mouth. To follow-up with pulmonology as outpatient. Spoke with the patient patient may need thoracentesis as outpatient if does not respond to Lasix. DM2: Sliding scale w/ Accu-Cheks. Hold Metformin for possible intervention. A-fib: Chronic. Resume home Cardizem, continue telemetry. DVT Prophylaxis: On Eliquis The patient improved. He is responding very well to diuretics, has a very good urine output. He is saturating well on room air. He wants to go home. Patient was discharged home with home health in stable condition. To follow-up with PCP and consultants as outpatient. Pt Condition on Discharge: Stable Discharge Disposition: Disch w/ Home Health Serv Discharge Time: > 30 minutes Discharge Instructions DIET: Follow Instructions for: Heart Healthy Diet, Diabetic Diet Activities you can perform: Regular-No Restrictions Follow up Referrals: Cardiology - 1 Week with Nenita Harris MD PCP Follow-up - 2-3 Days with Abhay Woods MD Pulmonology - 1 Week with Chris Cohen MD New Medications: Aspirin DR (Aspirin DR) 81 Mg Tabdr 81 MG PO DAILY for Blood Clot Prevention, #30 TAB Changed Medications: Furosemide (Lasix) 40 Mg Tab 40 MG PO BID for Pleural effusion , #60 TAB 0 Refills (Changed from: DAILY; 30) Continued Medications: Apixaban (Eliquis) 5 Mg Tab 5 MG PO BID for Blood Clot Prevention, #60 TAB 0 Refills Atorvastatin (Atorvastatin) 20 Mg Tab 20 MG PO HS for Cholesterol Management, #30 TAB 0 Refills Betamethasone Dipropionate Topical (Betamethasone Dipropionate Topical) 0.05% Cream 1 APPLIC TOPICAL DIRECTED for Dermatoses, #15 GM 0 Refills Budesonide-Formoterol Inh (Symbicort Inh) 160-4.5 Mcg/Act Aero 1 PUFF INH Q12HR, #1 INHALER 0 Refills Cyanocobalamin (B12) 1,000 Mcg Tab 5000 MCG PO DAILY Diltiazem (Diltiazem) 120 Mg Tab 180 MG PO BID for Angina, #120 TAB 0 Refills Gabapentin (Gabapentin) 300 Mg Cap 300 MG PO HS, #30 CAP 0 Refills Losartan (Losartan) 100 Mg Tab 100 MG PO DAILY for Blood Pressure Management, #30 TAB 0 Refills Meloxicam (Meloxicam) 7.5 Mg Tab 7.5 MG PO DAILY for Arthritis Pain, TAB 0 Refills Metformin (Metformin) 850 Mg Tab 850 MG PO BIDPC for Blood Sugar Management, TAB 0 Refills With meals Metoprolol Tartrate (Metoprolol Tartrate) 25 Mg Tab 50 MG PO DAILY, #60 TAB 0 Refills Multiple Vitamins W/ Minerals (Centrum) 1 Chew 1 TAB CHEW DAILY for Nutritional Supplement, TAB 0 Refills Multiple Vitamins W/ Minerals (Preservision Areds) 1 Tab 1 TAB PO DAILY for Nutritional Supplement, TAB 0 Refills Omeprazole (Omeprazole) 20 Mg Tab 20 MG PO DAILY, #30 TAB 0 Refills Potassium Chloride ER (Potassium Chloride ER) 20 Meq Tab 20 MEQ PO DAILY for Electrolyte Replacement, #30 TAB 0 Refills Tessa Macias MD May 23, 2017 08:18
--- NOTE | 2017-05-23 08:19 | HHI.FF ---
Face to Face Verification Diagnosis: (1) CAD (coronary artery disease) (2) Diabetes mellitus (3) Atrial fibrillation (4) DM (diabetes mellitus) (5) A-fib (6) Pleural effusion Physical Therapy Order: Evaluate and Treat Occupational Therapy Order: Evaluate and Treat Home Health Nursing Order: Medical education Signs/symptoms of disease process CHF education Medication education-adverse effect Nursing assessment with vital signs I have seen patient Shiva Rm on 05/23/17. My clinical findings support the need for the requested home health care services because: Ltd mobility - disease progression Patient has SOB I certify that my clinical findings support that this patient is homebound because: Post-op weakness Unsteady gait/balance Tessa Macias MD May 23, 2017 08:19
[2017-05-23] MEDS: DOCUSATE SODIUM 50 MG/SENNA 8.6 MG TAB PO SCH (08:43)
[2017-05-23] MEDS: ASPIRIN EC 81 MG TABEC PO SCH (08:43)
[2017-05-23] MEDS: POTASSIUM CHLORIDE 20 MEQ CONTROLLED RELEASE TAB PO SCH (08:43)
[2017-05-23] MEDS: LOSARTAN 50 MG TAB PO SCH (08:43)
[2017-05-23] MEDS: CARVEDILOL 6.25 MG TAB PO SCH (08:44)
[2017-05-23] MEDS: FUROSEMIDE 40 MG/4 ML VIAL IV PUSH SCH (08:44)
[2017-05-23] MEDS: SODIUM CHLORIDE 0.9% FLUSH 10 ML FLUSH IV FLUSH SCH (08:44)
[2017-05-23] MEDS: HEPARIN SODIUM - SQ 10,000 UNITS/ML VIAL SQ SCH (08:49)
[2017-05-23] MEDS: BUDESONIDE-FORMOTEROL 160/4.5 MCG INHALER INH SCH (08:50)
[2017-05-23] MEDS ORDERED: POTASSIUM CHLORIDE 10 MEQ CONTROLLED RELEASE TAB PO ONE (09:00)
[2017-05-23] MEDS: DILTIAZEM-CD 180 MG CAP ER PO SCH (09:25)
[2017-05-23] MEDS ORDERED: APIXABAN 5 MG TABLET PO SCH (10:00)
--- NOTE | 2017-05-23 13:38 | HHI.FF ---
Face to Face Verification Diagnosis: (1) DM (diabetes mellitus) (2) HTN (hypertension) (3) A-fib (4) CHF (congestive heart failure) (5) Atrial fibrillation (6) CAD (coronary artery disease) Physical Therapy Order: Evaluate and Treat Home Health Nursing Order: Medical education Signs/symptoms of disease process Medication education-adverse effect Nursing assessment with vital signs Instructions: telehealth system with maura monitor and respiratory therapy I have seen patient Shiva Rm on 05/23/17. My clinical findings support the need for the requested home health care services because: Ltd mobility - disease progression Patient has SOB I certify that my clinical findings support that this patient is homebound because: Post-op weakness Unsteady gait/balance Tessa Macias MD May 23, 2017 13:38
[2017-05-23] MEDS ORDERED: FURO1TAB60 PO (13:39)
== END 2017-05-23 14:10 | disposition home health service (06) | DRG 292 ==
LOC: NEPC 22:43 → NEDA 05-21 03:15 → HCVI 05-21 04:50 → HCPC 05-22 08:55
PROVIDERS: ADMIT Hospitalist; ATTEND Hospitalist
DX: I11.0 Hypertensive heart disease with heart failure (principal); I16.9 Hypertensive crisis, unspecified; J44.9 Chronic obstructive pulmonary disease, unspecified; I48.2 Chronic atrial fibrillation; Z79.02 Long term (current) use of antithrombotics/antiplatelets; I50.33 Acute on chronic diastolic (congestive) heart failure; E11.9 Type 2 diabetes mellitus without complications; Z79.84 Long term (current) use of oral hypoglycemic drugs; I25.10 Atherosclerotic heart disease of native coronary artery without angina pectoris; I25.2 Old myocardial infarction; R09.02 Hypoxemia; R07.89 Other chest pain; E78.5 Hyperlipidemia, unspecified; H91.90 Unspecified hearing loss, unspecified ear; Z87.891 Personal history of nicotine dependence
CPT/HCPCS: 71045; 71275; 76604; 80048; 80053; 81001; 82550; 82948; 83735; 83880; 84100; 84439; 84443; 84484; 85025; 85379; 85610; 93005; 96374; 96375; J1644; J1940; Q9967